=== PATIENT | female | born 1980 | race Caucasian/White ===

== ENCOUNTER 2024-10-25 13:57 | Outpatient (CLI) | payer MEDICAID, SELFPAY ==
[2024-10-25 18:22] LABS: Basophils # 0.1 K/mm3 (0-0.2); Basophils % 0.5 % (0.1-2.0); Eosinophils # 0.2 Kmm3 (0.0-0.4); Hematocrit 43.5 % (37.0-47.0); Hemoglobin 13.5 g/dL (12.2-16.2); Immature Granulocytes # 0.02 10^3uL; Immature Granulocytes % 0.2 %; Lymphocytes % 32.6 % (10-50); Mean Corpuscular Hemoglobin 25.8 pg (27.0-31.2); Mean Platelet Volume 11.3 fl (7.4-10.4); Monocytes # 0.7 K/mm3 (0.1-1.0); Monocytes % 7.6 % (1.7-9.3); Neutrophils # 5.3 K/mm3 (1.8-7.8); Neutrophils % 57.1 % (37.0-80.0); Nucleated Red Blood Cells # 0 10^3/uL; Nucleated Red Blood Cells % 0 %; Platelet Count 286 K/mm3 (142-424); Red Blood Count 5.24 M/mm3 (4.20-5.40); Red Cell Distribution Width 14.6 % (11.5-17.5); Red Cell Distribution Width-SD 43.6 fL; White Blood Count 9.3 K/mm3 (4.8-10.8)
[2024-10-25 19:16] LABS: Alanine Aminotransferase 36 U/L (12-78); Albumin Level 4.4 g/dl (3.5-5.0); Albumin/Globulin Ratio 1.8 (1.1-1.8); Alkaline Phosphatase 74 U/L (38-126); Anion Gap 11.9 mEq/L (5-15); Aspartate Amino Transferase 27 U/L (14-36); Bilirubin,Total 0.9 mg/dl (0.2-1.3); Blood Urea Nitrogen 21 mg/dl (7-17); Calcium 8.9 mg/dl (8.4-10.2); Carbon Dioxide 28 mmol/L (22.0-30.0); Chloride 101 mmol/L (98-107); Chol/HDL Ratio 3.6 (1-3.5); Cholesterol 138 mg/dl (140-200); Estimated Glomerular Filt Rate 68 ml/min (>60); GFR (African American) 82 ML/MIN (>60); Globulin 2.5 g/dL (1.3-3.2); Glucose 101 mg/dl (74-100); HDL Cholesterol 38 mg/dl (40-60); Potassium 3.9 mmoL/L (3.5-5.1); Sodium 137 mmol/L (136-145); Total Protein,Serum 6.9 g/dl (6.3-8.2); Triglycerides 121 mg/dl (30-150); VLDL Cholesterol 24 mg/dL (0-40)
[2024-10-25 19:27] LABS: Direct LDL Cholesterol 81.82 mg/dL (100-129)
[2024-10-25 19:46] LABS: Thyroid Stimulating Hormone 2.61 uIU/mL (0.465-4.68)
[2024-10-25 19:55] LABS: HIV Combo NEGATIVE (Negative)
[2024-10-25 20:01] LABS: Hepatitis C Ab Qual. W/ RFX REACTIVE (Negative)
[2024-10-25 20:12] LABS: Hemoglobin A1C 5.6 % (4.0-6.0)
== END 2024-10-25 23:59 | disposition home or self-care (01) ==
LOC: LAB.DROPOF 10-28 13:58
PROVIDERS: PCP Family Medicine; Visit Provider Family Medicine
DX: Z76.89 Persons encountering health services in other specified circumstances (principal)
CPT/HCPCS: 80053; 80061; 83036; 84443; 85025; 86803; 87389; 87522

== ENCOUNTER 2024-12-18 15:00 | Emergency (ER) | payer MEDICAID, SELFPAY ==
--- OUTSIDE RECORDS SUMMARY | 2024-12-17 10:00 | XMS_ITS | Encounter Summary ---
Author Organization [facility] Address [address] [place] [address] Care Team Providers Care Table Worker Name Role Phone Harlan Fulton MD Primary Care Provider [phone] Reason for Referral * MRI/CAT Scan (Routine) - Closed Specialty Diagnoses / Procedures Referred By Contac t Referred To Contact Orthopedic Surgery Diagnoses Degeneration of intervertebral disc of lumbosacral region with discogenic back pain Lumbar pain Sprain of ligaments of lumbar spine, initial encounter Bulging lumbar disc Spinal stenosis of lumbar region, unspecified whether neurogenic claudication present Sciatica, unspecified laterality Lumbar radiculopathy Lumbar spondylosis Sciatica, left side Degeneration of intervertebral disc of lumbar region with discogenic back pain Procedures MRI LUMBAR SPINE WO CONTRAST Alla Galan PA [address] [address] Phone: tel: fax: [facility] [address] [facility] [address] [place] [address] Phone: tel: fax: Referral ID Status Reason Start Date Expiration Date Visits Re quested Visits Authorized [id number] Closed 12/17/2024 12/17/2025 1 1 Reason for Visit * Reason Comments Follow-up Encounter Details Date Type Department Care Team (Latest Contact Info) Description 12/17/2024 10:00 AM EDT Office Visit [facility] [address] [place], [place] [id number] Alla Galan PA [address] [place] [phone] Degeneration of intervertebral disc of lumbosacral region with discogenic back pain (Primary Dx); Lumbar pain; Sprain of ligaments of lumbar spine, initial encounter; Bulging lumbar disc; Spinal stenosis of lumbar region, unspecified whether neurogenic claudication present; Sciatica, unspecified laterality; Lumbar radiculopathy; Lumbar spondylosis; Sciatica, left side; Degeneration of intervertebral disc of lumbar region with discogenic back pain; Chronic low back pain, unspecified back pain laterality, unspecified whether sciatica present Social History Tobacco Use Types Packs/Day Years Used Date Smoking Tobacco: Every Day Cigarettes 0.3 26.5 Started: 06/29/1998 Smokeless Tobacco: Never Comments:vape and smoke Alcohol Use Standard Drinks/Week Comments Yes 0 (1 standard drink = 0.6 oz pur e alcohol) OCC AUDIT-C Answer Date Recorded Q1: How often do you have a drink containing alc ohol? Never 11/06/2020 Average Number of Drinks Not on file 021 Frequency of Binge Drinking Not on file 10/11 PHQ-2 Answer Date Recorded PHQ-2 Total Score 0 06/14/2024 Sexually Active Control Partners Comments Yes Male Comments No Sex and Gender Information Value Date Recorded Sex Assigned at Not on file Legal Sex Female 2:34 AM EDT Gender Identity Not on file Sexual Orientation Not on file documented as of this encounter Last Filed Vital Signs Vital Sign Reading Time Taken Comments Blood Pressure - - Pulse - - Temperature - - Respiratory Rate - - Oxygen Saturation - - Inhaled Oxygen Concentration - - Weight 88.5 kg (195 lb) 12/17/2024 9:59 AM EDT Height 149.9 cm (4' 11 ) 12/17/2024 9:59 AM EDT Body Mass Index 39.39 12/17/2024 9:59 AM EDT documented in this encounter Functional Status * Is the person deaf or does he/she have serious difficulty hearing? Answer Date of Assessment Author No 11/06/2020 4:01 PM EDT Niharika Lou RMA * Is the person blind or does he/she have serious difficulty seeing even when wearing glasses? Answer Date of Assessment Author No 11/06/2020 4:01 PM EDT Niharika Lou RMA * Does this person have serious difficulty walking or climbing stairs? Answer Date of Assessment Author No 11/06/2020 4:01 PM EDT Niharika Lou RMA * Does this person have difficulty dressing or bathing? Answer Date of Assessment Author No 11/06/2020 4:01 PM EDT Niharika Lou RMA * Because of a physical, mental or emotional condition, does this person have difficulty doing errands alone such as visiting a doctor's office or shopping? Answer Date of Assessment Author No 11/06/2020 4:01 PM EDT Niharika Lou RMA documented as of this encounter Mental Status * Because of a physical, mental or emotional condition, does this person have serious difficulty concentrating, remembering or making decisions? Answer Entry Date Author No 11/06/2020 4:01 PM Niharika June RMA documented in this encounter Progress Notes * Alla Galan PA - 12/17/2024 10:00 AM EDT Images from the original note were not included. 12/17/24 CHIEF COMPLAINT: Chief Complaint Patient presents with Lower Back - Follow-up HISTORY OF PRESENT ILLNESS: 44 y.o. female Low back pain Started after she slipped and fell at [employer] [facility] [employer] November 2023 Cannot sit/stand/walk for prolonged periods of time Left greater than right anterior lateral thigh pain Numbness and tingling Back pain greater than leg pain No bowel or bladder dysfunction No saddle anesthesia Returns for reevaluation Last seen May 2024 Signed up for L2-4 laminectomy Insurance denied due to BMI >40 Has since lost 15 pounds Still with persistent pain Wanting to proceed with surgery Previous Treatment: Physical therapy 01/2024-03/2024 Continues physician directed home exercises 3 x week Diclofenac Oxycodone Tizanidine L4-[address] Ward 04/17/2024. No effect whatsoever Pain management Dr. Ward Past Medical History: Body mass index is 39.39 kg/m??. Diabetic-last A1c 6.4 Past Medical History: Diagnosis Date Anxiety Arthritis In hands and back Calculus of gallbladder without cholecystitis without obstruction 06/26/2020 S/ lap willy on 06/29 COPD (chronic obstructive pulmonary disease) (HCC) Heartburn Hypertension Social History: Non-smoker reports that she has been smoking cigarettes. She started smoking about 26 years ago. She has a 6.6pack-year smoking history. She has never used smokeless tobacco. She reports current alcohol use. She reports that she does not currently use drugs after having used the following drugs: Marijuana and Methamphetamines. PHYSICAL EXAM: LUMBAR/SACRALEXAMINATION: Inspection/Palpation: Points to midline lumbar spine is maximal source of pain today Also points to left greater than right anterior lateral thigh Range of Motion: Full range of motion lumbar spine Motor: 5 out of 5 strength bilateral lower extremities Sensation: Intact throughout Special Tests: Negative straight leg raise bilaterally Reflexes: 1+ patellar reflexes Gait & station: Stable Diagnostic Testing: L spine X rays: Independently reviewed Multilevel degenerative changes No acute bony abnormalities MRI Lumbar Spine: Independently reviewed, 09/14/23 Multilevel degenerative disc disease L2-3 with moderate central stenosis L3-4 with moderate central stenosis and moderate bilateral foraminal stenosis CT abdomen pelvis independently reviewed 05/03/2023: Multilevel degenerative disc disease in lumbar spine Maintained alignment Impression: 1. Degeneration of intervertebral disc of lumbosacral region with discogenic back pain XR LUMBAR SPINE FLEXION AND EXTENSION ONLY MRI LUMBAR SPINE WO CONTRAST CANCELED: MRI LUMBAR SPINE WO CONTRAST 2. Lumbar pain XR LUMBAR SPINE FLEXION AND EXTENSION ONLY MRI LUMBAR SPINE WO CONTRAST CANCELED: MRI LUMBAR SPINE WO CONTRAST 3. Sprain of ligaments of lumbar spine, initial encounter XR LUMBAR SPINE FLEXION AND EXTENSION ONLY MRI LUMBAR SPINE WO CONTRAST CANCELED: MRI LUMBAR SPINE WO CONTRAST 4. Bulging lumbar disc XR LUMBAR SPINE FLEXION AND EXTENSION ONLY MRI LUMBAR SPINE WO CONTRAST CANCELED: MRI LUMBAR SPINE WO CONTRAST 5. Spinal stenosis of lumbar region, unspecified whether neurogenic claudication present XR LUMBAR SPINE FLEXION AND EXTENSION ONLY MRI LUMBAR SPINE WO CONTRAST CANCELED: MRI LUMBAR SPINE WO CONTRAST 6. Sciatica, unspecified laterality XR LUMBAR SPINE FLEXION AND EXTENSION ONLY MRI LUMBAR SPINE WO CONTRAST CANCELED: MRI LUMBAR SPINE WO CONTRAST 7. Lumbar radiculopathy XR LUMBAR SPINE FLEXION AND EXTENSION ONLY MRI LUMBAR SPINE WO CONTRAST CANCELED: MRI LUMBAR SPINE WO CONTRAST 8. Lumbar spondylosis XR LUMBAR SPINE FLEXION AND EXTENSION ONLY MRI LUMBAR SPINE WO CONTRAST CANCELED: MRI LUMBAR SPINE WO CONTRAST 9. Sciatica, left side XR LUMBAR SPINE FLEXION AND EXTENSION ONLY MRI LUMBAR SPINE WO CONTRAST CANCELED: MRI LUMBAR SPINE WO CONTRAST 10. Degeneration of intervertebral disc of lumbar region with discogenic back pain XR LUMBAR SPINE FLEXION AND EXTENSION ONLY MRI LUMBAR SPINE WO CONTRAST CANCELED: MRI LUMBAR SPINE WO CONTRAST 11. Chronic low back pain, unspecified back pain laterality, unspecified whether sciatica present Medical decision Making: Patient presents for reevaluation. Last seen in May [address] Archer. At that time, she was signed up for L2-4 laminectomy. This was denied by insurance due to BMI >40. She has since lost 15 pounds and her BMI is now <40. She has failed extensive conservative treatment including formal physical therapy and physician directed home exercises within the past 6 months and continues tohave pain. I do not think more physical therapy will improve her symptoms. Her last MRI is over a year old. Will order an updated lumbar MRI for surgical planning purposes and have her follow up withDr. Archer to review results. Plan: Lumbar MRI Follow up with Dr. Archer Previous plan L2-3, L3-4 laminectomy Reviewed imaging with patient Activity as tolerated Alla Galan PA-C [facility] [phone] Disclaimer: This note was partially transcribed via voice recognition software. Though all efforts were made to ensure accuracy, it is possible this note may contain telephone station repairer errors. Please bring any inaccuracies discovered to my attention so I may make a corrective addendum in a timely fashion. documented in this encounter Plan of Treatment Upcoming Encounters Date Type Department Care Team (Late st Contact Info) Description 02/26/2025 1:20 PM EDT Office Visit [facility] [address] [place] [phone] Constantin Evans, OD [address] [address] [place] [phone] Scheduled Orders Name Type Priority Associated Diagnoses Orde r Schedule MRI LUMBAR SPINE WO CONTRAST Imaging Routine Degeneration of intervertebral disc of lumbosacral region with discogenic back pain Lumbar pain Sprain of ligaments of lumbar spine, initial encounter Bulging lumbar disc Spinal stenosis of lumbar region, unspecified whether neurogenic claudication present Sciatica, unspecified laterality Lumbar radiculopathy Lumbar spondylosis Sciatica, left side Degeneration of intervertebral disc of lumbar region with discogenic back pain 1 Occurrences starting 12/17/2024 until 12/17/2025 documented as of this encounter Goals Goal Patient Goal Type Associated Problems Recent Progress Patient-Stated? Author Blood Pressure < 140/90 Blood Pressure 130/84(2024 2:26 PM EST) No Naveen Borden MD Maintain a healthy diet, exercise regularly and maintain an ideal body weight General No Annabel Sr RMA BMI (Calculated) < 30 General 39.5(12/18/19 9:59 AM EDT) No Erma Warner MD Stay Tobacco Free Lifestyle No Cory Henriquez MD HEMOGLOBIN A1C < 7.0 Result Component 6.1( 3:21 PM EST) No Erma Warner MD documented as of this encounter Results * XR LUMBAR SPINE FLEXION AND EXTENSION ONLY (12/17/2024 10:18 AM EDT) Narrative Santino Schneider - 12/17/2024 10:18 AM EDT Please see physician's note from office encounter for x-ray imaging result Alla PHILLIPS IMG DIAGNOSTIC IMAGING ORDERABL ES Final Result documented in this encounter Visit Diagnoses Diagnosis Degeneration of intervertebral disc of lumbosacral region with discogenic back pain- Primary Lumbar pain Lumbago Sprain of ligaments of lumbar spine, initial encounter Bulging lumbar disc Displacement of lumbar intervertebral disc without myelopathy Spinal stenosis of lumbar region, unspecified whether neurogenic claudication present Sciatica, unspecified laterality Lumbar radiculopathy Thoracic or lumbosacral neuritis or radiculitis, unspecified Lumbar spondylosis Lumbosacral spondylosis without myelopathy Sciatica, left side Degeneration of intervertebral disc of lumbar region with discogenic back pain Chronic low back pain, unspecified back pain laterality, unspecified whether sciatica present Degeneration of intervertebral disc of lumbosacral region with discogenic back pain Lumbar pain Lumbago Sprain of ligaments of lumbar spine, initial encounter Bulging lumbar disc Displacement of lumbar intervertebral disc without myelopathy Spinal stenosis of lumbar region, unspecified whether neurogenic claudication present Sciatica, unspecified laterality Lumbar radiculopathy Thoracic or lumbosacral neuritis or radiculitis, unspecified Lumbar spondylosis Lumbosacral spondylosis without myelopathy Sciatica, left side Degeneration of intervertebral disc of lumbar region with discogenic back pain documented in this encounter Care Teams Table Worker Relationship Specialty Start Date End Date Harlan Fulton MD [address] [place] [address] PCP - General Family Medicine 12/17/24 documented as of this encounter
--- OUTSIDE RECORDS SUMMARY | 2024-12-17 10:15 | XMS_ITS | Encounter Summary ---
Author Organization [facility] Address [address] [place] [address] Care Team Providers Care Residential Specialist Name Role Phone Harlan Fulton MD Primary Care Provider [phone] Encounter Details Date Type Department Care Team (Latest Contact Info) Description 12/17/2024 10:15 AM EDT Ancillary Procedure [facility] [address] [facility] [address] [place] [address] Alla Galan PA [address] [address] Degeneration of intervertebral disc of lumbosacral region with discogenic back pain; Lumbar pain; Sprain of ligaments of lumbar spine, initial encounter; Bulging lumbar disc; Spinal stenosis of lumbar region, unspecified whether neurogenic claudication present; Sciatica, unspecified laterality; Lumbar radiculopathy; Lumbar spondylosis; Sciatica, left side; Degeneration of intervertebral disc of lumbar region with discogenic back pain Social History Tobacco Use Types Packs/Day Years [...] on file documented as of this encounter Functional Status * Is the [...] Entry Date Author No 11/06/2020 4:01 PM EDT Niharika Lou RMA documented in this encounter Plan of Treatment Upcoming Encounters Date Type Department Care Team (Late st Contact Info) Description 02/26/2025 1:20 PM EDT Office Visit [facility] [address] [phone] Constantin Evans, [address] [place] [address] documented as of this encounter Goals Goal [...] Warner MD documented as of this encounter Procedures Procedure Name Priority Date/Time Associated Diagnosis Comments XR LUMBAR SPINE FLEXION AND EXTENSION ONLY Routine 12/17/2024 10:18 AM EDT Degeneration of intervertebral disc of lumbosacral region with discogenic back pain Lumbar pain Sprain of ligaments of lumbar spine, initial encounter Bulging lumbar disc Spinal stenosis of lumbar region, unspecified whether neurogenic claudication present Sciatica, unspecified laterality Lumbar radiculopathy Lumbar spondylosis Sciatica, left side Degeneration of intervertebral disc of lumbar region with discogenic back pain documented in this encounter Results * XR LUMBAR SPINE FLEXION AND EXTENSION ONLY (12/17/2024 10:18 AM EDT) Narrative GenericuserSantino - 12/17/2024 10:18 AM EDT Please see [...] pain documented in this encounter Care Teams Residential Specialist Relationship Specialty Start Date End Date Harlan Fulton MD [address] [place] [address] PCP - General Family Medicine 12/17/24 documented as of this encounter
[2024-12-18 15:09] VITALS: BP 155/96; PULSE 84; RESP 16; TEMP 36.8; O2SAT 100; BMI 39.2
--- OUTSIDE RECORDS SUMMARY | 2024-12-18 15:11 | XMS_ITS | Encounter Summary ---
Author Organization [facility] Address [address] [place] [address] Care Team Providers Care Animal Trainer Supervisor Name Role Phone Harlan Fulton MD Primary Care Provider [phone] Reason for Visit * Reason Onset Date Comments Medication Refill 12/17/2024 Encounter Details Date Type Department Care Team (Late st Contact Info) Description 12/17/2024 Refill [facility] [address] [facility] [address] [place], [place] [phone] Alex Chase MA Medication Refill Social History Tobacco Use Types Packs/Day Years [...] Niharika June RMA documented in this encounter Ordered Prescriptions Prescription Sig Dispense Quantity Refills Last Filled Start Date End Date diazePAM (VALIUM) 2 mg Oral TabletIndications: Claustrophobia Take one tablet by mouth 30 minutes prior to MRI; take second tablet if needed 2 Tablet 12/17/2024 documented in this encounter Plan of Treatment Upcoming Encounters Date Type Department Care Team (Late st Contact Info) Description 02/26/2025 1:20 PM EDT Office Visit [facility] [address] [address] Constantin Evans, OD [address] [place] [address] documented as of this encounter Goals Goal [...] Warner MD documented as of this encounter Visit Diagnoses Diagnosis Claustrophobia- Primary Other isolated or specific phobias documented in this encounter Care Teams Animal Trainer Supervisor Relationship Specialty Start Date End Date Harlan Fulton MD [address] [place] [address] PCP - General Family Medicine 12/17/24 documented as of this encounter
--- OUTSIDE RECORDS SUMMARY | 2024-12-18 15:11 | XMS_ITS | Encounter Summary ---
Author Organization [facility] Address [address] [place] [address] Care Team Providers Care High Density Finishing Operator Name Role Phone Charlene Rivera APRN Primary Care Provider [phone] Reason for Visit * Reason Onset Date Comments Referral 10/30/2024 Pain Management Encounter Details Date Type Department Care Team (Late st Contact Info) Description 10/30/2024 Telephone [facility] Learning Manager [address] [employer] [place] [phone] Quentin Farley MD [address] [place] [address] Referral (Pain Management) Social History Tobacco Use Types Packs/Day Years [...] Author No 11/06/2020 4:01 PM EDT Niharika Lou, NANETTEA * Is the person blind or does [...] Author No 11/06/2020 4:01 PM EDT Niharika Lou, RMA * Because of a physical, mental [...] Niharika Lou RMA documented in this encounter Miscellaneous Notes * Telephone Encounter - Swati Pierce, [facility] - 10/30/2024 1:39 PM EDT Summary: referral Previously seen Dr. Ward for injections, started the conversation by stating she is not intrested in any injections as they always make her pain worse. She only wants pain medicine Explained to patient that we are also interventional and do injections as well. I gave her numbers to medication management offices in the area [facility] [phone] [address] [facility] [address], [facility] [phone] [address] [facility] [phone] [address] Vas[address] * Telephone Encounter - Rebeca Fernandes NA - 10/30/2024 12:12 PM EDT Received a faxed Pain Management Referral from [facility]. Dr. Harlan Fulton MD ([employer]) documented in this encounter Plan of Treatment Upcoming Encounters Date Type Department Care Team (Late st Contact Info) Description 02/26/2025 1:20 PM EDT Office Visit [facility] [address] [facility] [address] [place] [address] Constantin Evans, OD [address] [facility] [address] [place], [place] [phone] documented as of this encounter Goals Goal [...] documented as of this encounter Visit Diagnoses Not on filedocumented in this encounter Care Teams High Density Finishing Operator Relationship Specialty Start Date End Date Charlene Rivera APRN [address] [place] [address] PCP - General Nurse Practitioner 12/01/23 12/16/24 documented as of this encounter
--- OUTSIDE RECORDS SUMMARY | 2024-12-18 15:11 | XMS_ITS | Encounter Summary ---
Author Organization [facility] Address [address] [place] [address] Care Team Providers Care Filling Machine Set Up Mechanic Name Role Phone Elizabeth Sahu DO Primary Care Provider [phone] Charlene Rivera APRN Primary Care Provider [phone] Harlan Fulton MD Primary Care Provider [phone] Encounter Details Date Type Department Care Team (Late st Contact Info) Description 10/13/2023 Refill [facility] [address] [place] [address] David Archer MD [address] [place] [address] Social History Tobacco Use Types Packs/Day Years Used Date Smoking Tobacco: Former Cigarettes 0.3 26.5 S tarted: 06/29/1998 Smokeless Tobacco: Never Comments:vape and smoke [...] Answer Date Recorded PHQ-2 Total Score 0 11/06/2020 Sexually Active Control Partners Comments Yes Male [...] Author No 11/06/2020 4:01 PM EDT Niharika Luo RMA * Does this person have difficulty [...] Niharika Lou RMA documented in this encounter Ordered Prescriptions Prescription Sig Dispense Quantity Refills Last Filled Start Date End Date gabapentin (NEURONTIN) 300 mg Oral CapsuleIndications :DDD (degenerative disc disease), lumbar,Sprain of ligaments of lumbar spine, initial encounter,Lumbar pain Take 1 Capsule by mouth 2 times daily. 60 Capsule 4 10/15/2023 4 documented in this encounter Miscellaneous Notes * Telephone Encounter - Bing Mahoney MA - 10/13/2023 2:01 PM EDT Called patient and let her know that I will reach out to Dr. Archer to see about getting the prescription signed off on to be sent to pharmacy * Telephone Encounter - Melodie Gomez, Clerical Staff - 10/13/2023 1:49 PM EDT pt called because pharmacy stated the they have 2 different kerwin numbers. needs new rx with correct kerwin number documented in this encounter Plan of Treatment Upcoming Encounters Date Type Department Care Team (Late st Contact Info) Description 02/26/2025 1:20 PM EDT Office Visit [facility] [address] [facility] [address] [place] [address] Constantin Evans, OD [address] [place] [address] documented as of this encounter Goals Goal [...] as of this encounter Visit Diagnoses Diagnosis DDD (degenerative disc disease), lumbar- Primary Degeneration of lumbar or lumbosacral intervertebral disc Sprain of ligaments of lumbar spine, initial encounter Lumbar pain Lumbago documented in this encounter Discontinued Medications Medication Sig Discontinue Reason Start Date End Da te gabapentin (NEURONTIN) 300 mg Oral CapsuleIndications:DDD (degenerative disc disease), lumbar,Sprain of ligaments of lumbar spine, initial encounter Take 1 Capsule by mouth 2 times daily. Cancelled by 10/10/2023 10/15/2023 documented as of this encounter Additional Health Concerns Infection Onset Date Last Indicated Resolved Time R/O COVID-19 06/06/2024 06/06/2024 06/06/2024 6:50 PM EST INFLUENZA 06/06/2024 06/06/2024 06/20/2024 10:1 2 PM EST documented as of this encounter Care Teams Filling Machine Set Up Mechanic Relationship Specialty Start Date End Date Elizabeth Sahu DO [address] [place] [address] PCP - General Family Medicine 09/23/23 11/30/23 Charlene Rivera APRN [address] [place] [address] PCP - General Nurse Practitioner 12/01/23 12/16/24 Harlan Fulton MD [address] [place] [address] PCP - General Family Medicine 12/17/24 documented as of this encounter
--- OUTSIDE RECORDS SUMMARY | 2024-12-18 15:12 | XMS_ITS | Continuity of Care Document ---
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 06/28/2021 Refill [place] [address] [place] [address] Erma Warner MD Medication Refill 06/25/2021 Refill [place] [address] [place] [address] Darryl Carter MD Medication Refill 05/28/2021 Refill [place] [address] [place] [address] Erma Warner MD Medication Refill 05/27/2021 Refill [place] [address] [place] [address] Erma Warner MD Medication Refill 05/03/2021 Telephone [facility][1] [address] [place] [address] [address] [place] [address] Radha Armenta, ATC Note 04/27/2021 Telephone [place] [address] [place] [address] Erma Warner MD Prior Authorization (HYDROcodone-acetamin ophen (NORCO) 7.5-325 mg Oral [id number]/16/2021) 04/27/[address] [address] Radha Armenta, ATC Note 04/27/2021 11:10 AM EST Telemedicine [address] [place] [address] Erma Warner MD Yeast infection (Primary Dx); Elevated glucose; Hyperuricemia; Glucose intolerance; Iron deficiency anemia due to chronic blood loss; Screening for thyroid disorder; Vitamin D deficiency; Screening for cholesterol level 04/26/[address] [place] [address] Darryl Carter MD Medication Refill 04/14/2021 Travel 04/14/2021 10:20 AM EDT Telemedicine [address] [place] [address] Erma Warner MD Flea bite of multiple sites (Primary Dx); Finger pain, right; DDD (degenerative disc disease), lumbar; Facet arthritis of lumbar region; Arthropathy of spinal facet joint concurrent with and due to effusion; Constipation, unspecified constipation type 04/06/2021 Travel 04/06/2021 7:47 AM EDT - 04/06/2021 11:59 PM EDT Hospital Encounter [facility] [address] [place] [address] Amanda Joseph, OTR/L CHT Discharge Disposition: Home or Self Care 04/05/2021 1:15 PM EDT Office Visit [address] [address] Ramone De La Rosa MD Left hand pain (Primary Dx); Mallet deformity of left middle finger 03/30/[address] [place] [address] Erma Warner MD Medication Management 03/30/[address] [place] [address] Erma Warner MD Medication Refill 03/29/2021 Orders Only [address] [place] [address] Niharika Nieto RMA High risk medications (not anticoagulants) long-term use (Primary Dx) 03/29/2021 3:19 PM EDT - 03/29/2021 4:52 PM EDT Emergency [facility] [place] [address] Alla Gonzalez MD Finger pain, left (Primary Dx) Discharge Disposition: Home or Self Care 03/29/2021 Travel 03/29/2021 12:55 PM EDT - 03/29/2021 3:18 PM EDT Hospital En[facility] [address] [facility] [place] [address] High risk medications (not anticoagulants) long-term use Discharge Disposition: Home or Self Care 03/24/2021 Refill [place] [address] [place] [address] Erma Warner MD Medication Refill 03/08/2021 Refill [place] [address] [place] [address] Erma Warner MD Medication Refill 02/25/2021 Refill [place] [address] [place] [address] Erma Warner MD Medication Refill 02/24/2021 Refill [place] [address] [place] [address] Erma Warner MD Medication Refill 01/26/2021 Refill [place] [address] [place] [address] Erma Warner MD Medication Refill 01/15/2021 Telephone [place] [address] [place] [address] Erma Warner MD Appointment Needed (pt has a bruise on the back her left knee, it hurts and pops when she walks, x1 day,) 01/05/2021 Travel 01/05/2021 10:40 AM EDT Telemedicine [place] [place] [address] [place] [address] Erma Warner MD Menstrual bleeding problem (Primary Dx); Numbness and tingling in left hand 12/30/[address] [place] [address] Erma Warner MD Medication Refill 12/30/[address] [place] [address] Erma Warner MD Results ( Lab- wants to discuss lab results and medication .) 12/27/2020 1:24 PM EDT - 12/27/2020 11:59 PM EDT Hospital Encounter [facility] [address] [place] [address] DDD (degenerative disc disease), lumbar; Facet arthritis of lumbar region; Arthropathy of spinal facet joint concurrent with and due to effusion Discharge Disposition: Home or Self Care 12/23/2020 Travel 12/23/2020 10:20 AM EDT Telemedicine [address] [place] [address] Erma Warner MD Excessive vaginal bleeding (Primary Dx); DDD (degenerative disc disease), lumbar; Facet arthritis of lumbar region; Arthropathy of spinal facet joint concurrent with and due to effusion 12/22/[address] [place] [address] Erma Warner MD Medication Refill 12/21/2020 Refill SEP [address] [place] [address] Erma Warner MD Medication Refill (Gabapentin and [place]) 12/19/2020 Refill SEP [address] [place] [address] Erma Warner MD Medication Refill 12/18/2020 Refill [place] [address] [place] [address] Erma Warner MD Medication Refill 12/18/2020 Refill [place] [address] [place] [address] Erma Warner MD Medication Refill; Medication Refill 12/18/2020 Refill [place] [address] [place] [address] Erma Warner MD Medication Refill 11/19/[address] [place] [address] Erma Warner MD Results 11/19/2020 Refill SEP [address] [place] [address] Erma Warner MD Medication Refill 11/19/2020 8:30 AM EDT - 11/19/2020 11:59 PM EDT Hospital Encounter [facility] [address] [facility] [place] [address] High risk medications (not anticoagulants) long-term use Discharge Disposition: Home or Self Care 11/19/2020 Travel 11/17/[address] [place] [address] Erma Warner MD Schedule Appointment (pt needs a med check appt ov jarad/ tram sung) 11/17/2020 Travel 11/17/2020 Refill SEP [address] [place] [address] Erma Warner MD Medication Refill 11/17/2020 Refill [place] [address] [place] [address] Erma Warner MD Medication Refill 11/17/2020 Refill [place] [address] [place] [address] Erma Warner MD Medication Refill 11/17/[address] [place] [address] Erma Warner MD Medication Refill 11/16/2020 Orders Only [address] [place] [address] Emilia Niharika Perkins, [facility] 11/06/2020 2:05 PM EDT - 11/06/2020 11:59 PM EDT Hospital Encounter [facility] [address] [facility]. [place] [address] Iron deficiency anemia due to chronic blood loss; Hyperuricemia; Vitamin D deficiency; Hypercalcemia; Easy bruising; Cigarette nicotine dependence without complication; Glucose intolerance; Hypercalcemia; Abnormal TSH Discharge Disposition: Home or Self Care 11/06/2020 Travel 11/06/2020 4:00 PM EDT Office Visit [address] [place] [address] Erma Warner MD Pap smear for cervical cancer screening (Primary Dx); Menstrual bleeding problem 10/23/2020 Travel 10/19/2020 Travel 10/19/2020 9:00 AM EDT Telemedicine [address] [place] [address] Erma Warner MD DDD (degenerative disc disease), lumbar (Primary Dx); Depression with anxiety; Vitamin D deficiency; Facet arthritis of lumbar region; Arthropathy of spinal facet joint concurrent with and due to effusion; Constipation, unspecified constipation type 09/28/2020 Travel 09/21/2020 Travel 09/21/2020 10:40 AM EDT Telemedicine [address] [place] [address] Erma Warner MD Easy bruising (Primary Dx); Cigarette nicotine dependence without complication; Glucose intolerance; Hypercalcemia; Hyperuricemia; Iron deficiency anemia due to chronic blood loss; Vitamin D deficiency; Abnormal TSH; Depression with anxiety; S/P laparoscopic cholecystectomy; DDD (degenerative disc disease), lumbar; Facet arthritis of lumbar region; Arthropathy of spinal facet joint concurrent with and due to effusion; Essential hypertension; Gastroesophageal reflux disease, unspecified whether esophagitis present 08/31/2020 Travel 08/31/2020 9:40 AM EDT Telemedicine [address] [place] [address] Erma Warner MD Depression with anxiety (Primary Dx); Breast pain in female; Opioid use 08/24/[address] [place] [address] Erma Warner MD Medication Refill (hydrocodone and gabapentin) 08/24/2020 Travel 08/24/2020 Refill SEP [address] [place] [address] Erma Warner MD Medication Refill 08/24/2020 Refill [place] [address] [place] [address] Erma Warner MD Medication Refill 08/24/2020 Refill [place] [place] [address] [place] [address] Erma Warner MD Medication Refill 08/22/2020 Refill [place] [address] [place] [address] Erma Warner MD Medication Refill 08/22/2020 Refill [place] [address] [place] [address] Erma Warner MD Medication Refill 08/22/2020 Refill [place] [address] [place] [address] Erma Warner MD Medication Refill 08/22/2020 Refill [place] [address] [place] [address] Erma Warner MD Medication Refill 08/08/2020 Travel 08/08/2020 3:41 PM EST - 08/08/2020 4:25 PM EST Emergency [facility] [address] [place] [address] Sixto Bradford MD Breast pain, left (Primary Dx); Opiate overdose, accidental or unintentional, initial encounter ([facility]) Discharge Disposition: Prison 08/07/2020 Telephone SEP [address] [place] [address] Erma Warner MD Non-scheduled Referral 07/27/2020 Travel 07/27/2020 9:00 AM EST Telemedicine [place] [address] [place] [address] Erma Warner MD Sore throat (Primary Dx); DDD (degenerative disc disease), lumbar; Facet arthritis of lumbar region; Arthropathy of spinal facet joint concurrent with and due to effusion; Snoring; Vaping nicotine dependence, tobacco product 07/10/2020 Refill [place] [address] [place] [address] Erma Warner MD Medication Refill 07/10/2020 Refill [place] [address] [place] [address] Erma Warner MD Medication Refill 07/07/2020 Travel 07/07/2020 11:00 AM EST Telemedicine [place] [address] [place] [address] Erma Warner MD Constipation due to opioid therapy (Primary Dx); S/P laparoscopic cholecystectomy 07/07/2020 10:00 AM EST Telemedicine [facility] [address] [place] [address] Kb Ward MD Lumbar degenerative disc disease (Primary Dx); Lumbosacral spondylosis without myelopathy; Chronic pain syndrome 07/01/2020 Travel 07/01/2020 9:40 AM EST Telemedicine [place] [address] [place] [phone] Erma Warner MD S/P laparoscopic cholecystectomy (Primary Dx); Pain associated with surgical procedure; Calculus of gallbladder without cholecystitis without obstruction 06/30/2020 Travel 06/29/2020 12:15 PM EST - 06/30/2020 1:18 PM EST Hospital Encounter [facility] [address] [place], [place] [id number] Benny Frances MD Preop testing (Primary Dx); Calculus of gallbladder without cholecystitis without obstruction; Essential hypertension; Calculus of gallbladder without cholecystitis without obstruction Discharge Disposition: Home or Self Care 06/29/2020 Travel 06/29/2020 2:00 PM EST - 06/29/2020 3:15 PM EST Surgery [facility] [address] [place] [address] Benny Frances MD LAPAROSCOPIC CHOLECYSTECTOMY POSSIBLE OPEN 06/29/2020 1:50 PM EST Anesthesia Event [facility] [address] [place] [address] Génesis Perdue MD Spray, Elizabeth A, SIPHONER 06/26/2020 12:57 PM EST - 06/26/2020 11:59 PM EST Hospital Encounter [facility] [address] [place] [address] Covid19, [facility] Pre-op testing; Encounter for laboratory testing for COVID-19 virus Discharge Disposition: Home or Self Care 06/26/2020 Travel 06/26/2020 Orders Only [facility] [address] [place] [address] Benny Frances MD Calculus of gallbladder without cholecystitis without obstruction (Primary Dx) 06/26/2020 Telephone [facility] [address] [place] [address] Galina Jim[facility]nez [facility] Prior Authorization 06/26/2020 10:50 AM EST Telemedicine [facility] [address] [place] [address] Benny Frnaces MD Biliary colic (Primary Dx) 06/24/2020 Travel 06/22/2020 Travel 06/22/2020 10:00 AM EST Telemedicine [place] [place] [address] [place] [address] Erma Warner MD Calculus of gallbladder without cholecystitis without obstruction (Primary Dx); DDD (degenerative disc disease), lumbar; Facet arthritis of lumbar region; Arthropathy of spinal facet joint concurrent with and due to effusion 06/20/2020 10:28 AM EST - 06/20/2020 11:59 PM EST Hospital Encounter [facility] [place] [address] Erma Warner MD Abdominal pain, RUQ (right upper quadrant) Discharge Disposition: Home or Self Care 06/19/2020 Travel 06/06/2020 Refill [place] [address] [place] [address] Erma Warner MD Medication Refill 06/02/2020 Travel 06/02/2020 10:40 AM EST Telemedicine [place] [place] [address] [place] [address] Erma Warner MD Contusion of left thumb without damage to nail, initial encounter (Primary Dx) 05/28/2020 Patient Outreach [place] [address] [place] [address] Aidan Patrick LPN ED Follow-Up Call 05/27/2020 Travel 05/27/2020 12:58 PM EST - 05/27/2020 2:49 PM EST Emergency [facility] [address] [place] [id number] Emeka Rain MD Contusion of left thumb without damage to nail, initial encounter (Primary Dx) Discharge Disposition: Home or Self Care 05/16/2020 Travel 05/12/2020 Telephone [place] [address] [place] [address] Erma Warner MD Medication Management 05/12/2020 Travel 05/12/2020 11:00 AM EST Telemedicine [place] [address] [place] [address] Erma Warner MD DDD (degenerative disc disease), lumbar (Primary Dx); Facet arthritis of lumbar region; Arthropathy of spinal facet joint concurrent with and due to effusion 05/09/2020 Travel 05/09/2020 10:03 AM EST - 05/09/2020 11:59 PM EST Hospital Encounter [facility] [place] [address] Erma Warner MD Chronic left-sided low back pain with left-sided sciatica; DDD (degenerative disc disease), lumbar Discharge Disposition: Home or Self Care 04/24/2020 Travel 04/24/2020 2:00 PM EST Telemedicine [facility] [address] [place] [address] Erma Warner MD Chronic left-sided low back pain with left-sided sciatica (Primary Dx) 04/20/2020 Travel 04/15/2020 Travel 04/15/2020 10:00 AM EST Telemedicine [facility]P [facility] [place] [address] Erma Warner MD Chronic left-sided low back pain with left-sided sciatica (Primary Dx); Iron deficiency anemia due to chronic blood loss; Hyperuricemia; Vitamin D deficiency; Abdominal pain, RUQ (right upper quadrant); Abnormal TSH; Hypercalcemia 04/14/2020 Travel 04/13/2020 Orders Only [facility] [place] [address] Erma Warner MD Chronic left-sided low back pain with left-sided sciatica (Primary Dx); DDD (degenerative disc disease), lumbar 04/13/2020 Telephone [facility] [place] [address] Erma Warner MD Results (labs and imaging) 03/31/2020 3:14 PM EDT - 03/31/2020 11:59 PM EDT Hospital Encounter [facility] D[facility]WING X[facility] [place] [address] Chronic left-sided low back pain with left-sided sciatica; Well adult exam; Chronic pain of both hips; Cigarette nicotine dependence without complication; COPD, mild (HCC) Discharge Disposition: Home or Self Care 03/31/2020 Travel 03/30/2020 Travel 03/30/2020 8:20 AM EDT Office Visit [facility] [address] [place] [address] Erma Warner MD Well adult exam (Primary Dx); Establishing care with new doctor, encounter for; Chronic left-sided low back pain with left-sided sciatica; Chronic pain of both hips; Rectal bleeding; Generalized anxiety disorder; Depression with anxiety; Essential hypertension; Cigarette nicotine dependence without complication; Glucose intolerance; Gastroesophageal reflux disease, unspecified whether esophagitis present; COPD, mild (HCC); Screening for hyperlipidemia; Hypercalcemia; Vitamin D deficiency; Screening for deficiency anemia; Screening for thyroid disorder; Need for hepatitis C screening test; Breast mass in female; Elevated glucose 03/26/2020 Travel 10/10/2019 Travel 10/10/2019 9:00 AM EDT Telemedicine [facility] [address] [place] [phone] Naveen Borden MD DDD (degenerative disc disease), lumbar (Primary Dx) 10/09/2019 Telephone [facility] [place] [address] [place] [address] Naveen Borden MD Symptom Call 08/29/2019 Travel 08/28/2019 Travel 08/03/2019 Travel 08/03/2019 9:10 AM EST Office Visit [facility] [place] [address] [place] [address] Naveen Borden MD Essential hypertension (Primary Dx); Depression with anxiety; Epigastric abdominal pain; Rectal bleed; Gastroesophageal reflux disease with esophagitis 04/17/2019 1:00 PM EST Office Visit [facility] [place] [address] [place] [address] Naveen Borden MD Right leg numbness (Primary Dx); Essential hypertension; Depression with anxiety; Chronic left-sided low back pain with left-sided sciatica 03/29/2019 10:56 AM EDT - 03/29/2019 1:05 PM EDT Emergency [facility] [address] [place] [address] Galina Yuen DO Anxiety (Primary Dx); Contusion of left lower extremity, initial encounter Discharge Disposition: Home or Self Care 03/12/2019 Travel 03/12/2019 1:32 PM EDT - 03/12/2019 2:24 PM EDT Emergency [facility] [place] [address] Bryce Simms MD Odontalgia (Primary Dx) Discharge Disposition: Home or Self Care 10/25/2018 4:00 PM EDT Office Visit [facility] [address] [place] [address] Cory Henriquez MD Annual physical exam (Primary Dx); DDD (degenerative disc disease), lumbar; Acute bronchitis, unspecified organism 01/07/2015 Telephone [facility] [address] [place] [address] Sixto Byrne MD Other 12/29/2014 7:36 PM EDT - 12/29/2014 11:59 PM EDT Hospital Encounter [facility] [place] [address] Routine general medical examination at a health care facility; Weight gain; Vitamin D deficiency Discharge Disposition: Home or Self Care 12/29/2014 Telephone [facility] [address] [place] [address] Sixto Byrne MD Medication Management 12/29/2014 11:30 AM EDT Office Visit [facility] [address] [place] [address] Sixto Byrne MD Establishing care with new doctor, encounter for (Primary Dx); Thoracic back pain, unspecified back pain laterality; Bilateral hand numbness; Cervical pain; Low back pain, unspecified back pain laterality, with sciatica presence unspecified; Routine general medical examination at a health care facility; Weight gain; Vitamin D deficiency 07/07/1998 4:19 AM EST - 07/09/1998 1:18 PM EST Hospital Encounter [facility] Ramone Burch MD Heeb, Christopher A, MD 07/07/1998 1:29 AM EST - 07/07/1998 3:35 AM EST Emergency [facility] EPIC CON UNK [facility] Edward Russo MD 06/10/1998 2:41 PM EST - 06/10/1998 11:59 PM EST Hospital Encounter [facility] RADIOLOGY GRT Jorje Bills MD 06/09/1998 3:27 PM EST - 06/09/1998 4:30 PM EST Emergency [facility] EPIC CON UNK Alexandr Gutierrez MD 11/10/1995 7:03 PM EDT - 11/10/1995 11:59 PM EDT Hospital Encounter [facility] Allergies Active Allergy Reactions Criticality Noted Date Comments Penicillins Hives Low 12/29/2014 Meperidine Hives,Other (See Comments) Low 12/29/2014 Pt. Reports that it Warped her Phenergan Dm Rash Low 12/29/2014 Latex Rash Low 08/22/2022 Medications PROAIR HFA 90 mcg/actuation Inhl HFA Aerosol Inhaler Inhale 2 Puffs into the lungs 3 times daily. 8.5 Each 2 10/25/19 23 Active gabapentin (NEURONTIN) 400 mg Oral Capsule Take 400 mg by mouth 3 times daily. Active diclofenac (VOLTAREN) 75 mg Oral Tablet, Delayed Release (E.C.)Indication s:Lumbar pain,Sprain of ligaments of lumbar spine, initial encounter,Sprain of ligaments of thoracic spine, initial encounter,Bulgin g lumbar disc Take 1 Tablet by mouth 2 times daily. 30 Tablet 07/18/19 25 Active tiZANidine (ZANAFLEX) 4 mg Oral TabletIndication s:Lumbar pain,Sprain of ligaments of lumbar spine, initial encounter,Sprain of ligaments of thoracic spine, initial encounter,Bulgin g lumbar disc Take 1 Tablet by mouth nightly. 30 Tablet 07/18/19 25 Active empagliflozin (JARDIANCE) 10 mg Oral TabletIndication s:Type 2 diabetes mellitus with hyperglycemia, without long-term current use of insulin (HCC) Take 1 Tablet by mouth daily. 90 Tablet 3 08/27/19 25 Active lisinopriL (PRINIVIL;ZESTRI L) 20 mg Oral Tablet tabletIndication s:Essential hypertension Take 1 Tablet by mouth daily. 90 Tablet 1 08/27/19 25 Active diazePAM (VALIUM) 2 mg Oral TabletIndication s:Claustrophobia Take one tablet by mouth 30 minutes prior to MRI; take second tablet if needed 2 Tablet 12/18/19 25 Active semaglutide 0.25 mg or 0.5 mg (2 mg/3 mL) SubQ Pen InjectorIndicati ons:Type 2 diabetes mellitus without complication, unspecified whether usp insulin use (HCC) Subcutaneous (Inject under the skin) 0.25 mg once a week for 28 days, THEN 0.5 mg once a week for 14 days. 3 mL 10/11/19 25 025 Active Problems Patient Care Coordination No te Formatting of this note migh t be different from the original. [facility] - Kb Ward MD Controlled Substance Protocol Completed: A. Informed Consent Statement signed (Yearly) ( 03/04/2024 ) B. Controlled Substance Agreement signed (Yearly) ( 03/04/2024 ) C. Comprehensive Urine Drug Screen was performed (Minimum YEARLY ) ( 01/08/2024 ) D. Niraj report completed (EVERY 3 MONTHS) ( 04/29/2024 ) E. Screening tool for addiction (SOAPP) completed (YEARLY) ( 03/04/2024 ) F. Need for controlled substance is documented (EVERY VISIT) G. Pain Scale and or Functional capacity documented (EVERY VISIT) Pharmacy: [facility] [address] [place] [id number] [address] [facility] [phone] Spine Center additional info (Transportation, WC, Compound, No Show, PPW) Problem Noted Date Diagnosed Date Obesity, Class III, BMI 40-49.9 (morbid obesity) 06/19/2024 Assessment & Plan (06/19/2024 10:36 PM EST): Goals: - lose 10 pounds in 3 months (4 pounds the first month and 3 pounds the next two months) Advice: - exercise 30 minutes daily - reduce calories to 1200 calories daily - low carb diet Age-related nuclear cataract of both eyes 2023 Assessment & Plan (02/21/2024 2:25 PM EDT): I explained to the patient that they have visually insignificant cataracts in both the right and left eyes. These cataracts are not currently affecting their vision to a significant degree. We will continue to monitor the cataracts annually. I advised the patient to contact our office if they experience any of the following symptoms: Decreased vision Increased glare Halos around lights Difficulty seeing street signs while driving These symptoms could indicate that the cataracts are progressing and may require further evaluation or treatment. Diabetes mellitus type 2 without retinopathy 04/2024 Assessment & Plan (02/21/2024 2:25 PM EDT): The patient is a Type II diabetic with no signs of retinopathy today. We discussed the importance of maintaining good glucose control and emphasized the need for regular blood sugar/A1c management and annual eye exams. The patient was educated on diabetic eye disease and the necessity of yearly eye examinations. We also reviewed the importance of continuous blood sugar and blood pressure control. I stressed the need to adhere to the guidance provided by the patient s primary care physician and other healthcare providers involved in their care. The patient was instructed to contact our office immediately if they experience any changes in vision. Proper control of blood sugar and blood pressure is crucial to reducing the risk of vision loss. OCT of macula was Normal OD/OS. No signs of Diabetic macular edema OD/OS [id number] DDD 08/21/2023 Overview (06/19/2024): Surgery consult Almas Galan MD [facility] [place] Assessment & Plan (06/19/2024 10:28 PM EST): continue care with Spine [facility] Inter[facility] Sprain of ligaments of lumbar spine 08/21/2023 Sciatica, left side 08/21/2023 Type 2 diabetes mellitus wit h hyperglycemia, without long-term current use of insulin 03/06/2023 Gastroesophageal reflux disease with esophagitis 08/30/2021 Iron deficiency anemia due to chronic blood loss 04/15/2020 Hyperuricemia 04/15/2020 Assessment & Plan (04/15/2020 12:13 PM EST): Will start allopurinol. Counseled on diet changes. Repeat uric acid, bmp in 4 weeks. Vitamin D deficiency 03/30/2020 Assessment & Plan (04/15/2020 12:14 PM EST): Start weekly vit d. Repeat bmp in 4 weeks. If calcium is back down will try to add calcium with vit d 600mg/400 iu bid . Hypercalcemia 03/30/2020 Glucose intolerance 03/30/2020 Cigarette nicotine dependence without complicati on 03/30/2020 Lumbar pain 03/30/2020 Assessment & Plan (04/26/2020 11:11 PM EST): CSC not completed today but will need to be if gabapentin is continued [employer]. Awaiting MRI. Xray showed degenerative changes and grade 1 anterolisthesis of L2-L3 measuring 2mm. Denies saddle anesthesia, fevers, bowel or urinary incontinence. Assessment & Plan (04/15/2020 12:15 PM EST): Will do trial of oral steroid taper to see if improves pain given recent leg weakness while awaiting mri. May need to restart gabapentin. Essential hypertension 03/30/2020 Depression with anxiety 03/30/2020 Generalized anxiety disorder 03/30/2020 Resolved Problems Problem Noted Date Diagnosed Date Resolved Date Calculus of gallbladder with out cholecystitis without obstruction 06/26/2020 07/01/2020 Overview (07/01/2020): S/ lap willy on 06/29 Immunizations Immunization Administration Dates Next Due Influenza Vaccine Quadrivalent PF 06/30/2020 Family History Medical History Relation Name Comments Cataracts Father Heart Attack Father before age 50; had total of 7 High Blood Pressure Father High Cholesterol Father Diabetes Maternal Aunt Uterine Cancer Maternal Aunt Diabetes Maternal Grandfather Diabetes Maternal Grandmother Back Problems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 [facility] Barbiturates Absent Cutoff 200 ng/mL 01/10/2024 2:30 PM EDT [facility] THC <10 Cutoff 10 ng/mL ng/mL 01/10/2024 2:30 PM EDT [employer] [employer] Comment:3-vedmalk-fsscdkuvri cannabinol; does not distinguish between prescribed and illicit forms THC Glucuronide <10 Cutoff 10 ng/mL ng/mL 01/10/2024 2:30 PM EDT [employer] Comment:Metabolite of THC Amphetamine <50 Cutoff 50 ng/mL ng/mL 01/10/2024 2:30 PM EDT [facility] Comment:e.g., Adderall, Vyva nse, Dexedrine, Obetrol MDA <50 Cutoff 50 ng/mL ng/mL 01/10/2024 2:30 PM EDT [facility] Comment:Metabolite of MDMA, and MDEA MDEA <50 Cutoff 50 ng/mL ng/mL 01/10/2024 2:30 PM EDT [facility] Comment:e.g., Bernie MDMA <50 Cutoff 50 ng/mL ng/mL 01/10/2024 2:30 PM EDT [facility] Comment:e.g., Ecstasy, Regina Methamphetamine <50 Cutoff 50 ng/mL ng/mL 01/10/2024 2:30 PM EDT [facility] Comment:d- and l- isomers ar e not distinguished by this test; may reflect Star's inhaler, Desoxyn, Selegiline, or illicit source Phentermine <50 Cutoff 50 ng/mL ng/mL 01/10/2024 2:30 PM EDT [facility] Comment:e.g., Adipex, Lomair a, Ionamin,Fastin,Zantryl Gabapentin <50 Cutoff 50 ng/mL ng/mL 01/10/2024 2:30 PM EDT [facility] Comment:e.g, Neurontin Pregabalin <50 Cutoff 50 ng/mL ng/mL 01/10/2024 2:30 PM EDT [facility] Comment:Lyrica Alprazolam <8 Cutoff 8 ng/mL ng/mL 01/10/2024 2:30 PM EDT [facility] Comment:e.g, Xanax, Niravam alpha-Hydroxyalprazolam <25 Cutoff 25 ng/mL ng/mL 01/10/2024 2:30 PM EDT [facility] Comment:Metabolite of Alpraz olam Clonazepam <10 Cutoff 10 ng/mL ng/mL 01/10/2024 2:30 PM EDT [facility] Comment:e.g., Klonopin, Clon opin 7-Aminoclonazepam <25 Cutoff 25 ng/mL ng/mL 01/10/2024 2:30 PM EDT [facility] Comment:Metabolite of Clonaz epam Diazepam <10 Cutoff 10 ng/mL ng/mL 01/10/2024 2:30 PM EDT [facility] Comment:e.g, Valium, Diastat Nordiazepam <25 Cutoff 25 ng/mL ng/mL 01/10/2024 2:30 PM EDT [facility] Comment:Metabolite of Chlord iazepoxide(Librium), Clorazepate(Tranxene), Diazepam, Halazepam, (Alapryl), Prazepam(Centrax) Flunitrazepam <50 Cutoff 50 ng/mL ng/mL 01/10/2024 2:30 PM EDT [facility] Comment:e.g.,Rohypnol, Narco zep 7-Aminoflunitrazepam <50 Cutoff 50 ng/mL ng/mL 01/10/2024 2:30 PM EDT [facility] Comment:Metabolite of Flunit razepam Flurazepam <50 Cutoff 50 ng/mL ng/mL 01/10/2024 2:30 PM EDT [facility] Comment:e.g., Dalmane Hydroxyethylflurazepam <50 Cutoff 50 ng/mL ng/mL 01/10/2024 2:30 PM EDT [facility] Comment:Metabolite of Fluraz epam Lorazepam <50 Cutoff 50 ng/mL ng/mL 01/10/2024 2:30 PM EDT [facility] Comment:e.g., Ativan Lorazepam Glucuronide <50 Cutoff 50 ng/mL ng/mL 01/10/2024 2:30 PM EDT [facility] Comment:Metabolite of Loraze hugh Midazolam <50 Cutoff 50 ng/mL ng/mL 01/10/2024 2:30 PM EDT [facility] Comment:e.g., Versed alpha-hydroxymidazolam <50 Cutoff 50 ng/mL ng/mL 01/10/2024 2:30 PM EDT [facility] Comment:Metabolite of Versed Oxazepam <50 Cutoff 50 ng/mL ng/mL 01/10/2024 2:30 PM EDT [facility] Comment:e.g., Serax; also Me tabolite of Temazepam, and Nordiazepam Oxazepam Glucuronide <50 Cutoff 50 ng/mL ng/mL 01/10/2024 2:30 PM EDT [facility] Comment:Metabolite of Oxazep am Temazepam <50 Cutoff 50 ng/mL ng/mL 01/10/2024 2:30 PM EDT [facility] Comment:e.g., Restoril; also Metabolite of Diazepam Temazepam Glucuronide <50 Cutoff 50 ng/mL ng/mL 01/10/2024 2:30 PM EDT [facility] Comment:Metabolite of Temaze hugh and Diazepam Triazolam <50 Cutoff 50 ng/mL ng/mL 01/10/2024 2:30 PM EDT [facility] Comment:e.g., Halcion alpha-hydroxytriazolam <50 Cutoff 50 ng/mL ng/mL 01/10/2024 2:30 PM EDT [facility] Comment:Metabolite of Triazo ravi Buprenorphine <5 Cutoff 5 ng/mL ng/mL 01/10/2024 2:30 PM EDT [facility] Comment:e.g., Suboxone, Subu gerardo,Sublocade, Buprenex Buprenorphine Glucuronide <10 Cutoff 10 ng/mL ng/mL 01/10/2024 2:30 PM EDT [facility] Comment:Buprenorphine Metabo lite Norbuprenorphine <5 Cutoff 5 ng/mL ng/mL 01/10/2024 2:30 PM EDT [facility] Comment:Buprenorphine Metabo lite Norbuprenorphine Glucuronide <10 Cutoff 10 ng/mL ng/mL 01/10/2024 2:30 PM EDT [facility] Comment:Buprenorphine Metabo lite Benzoylecgonine <50 Cutoff 50 ng/mL ng/mL 01/10/2024 2:30 PM EDT [facility] Comment:Cocaine Metabolite Fentanyl <1 Cutoff 1 ng/mL ng/mL 01/10/2024 2:30 PM EDT [facility] Comment:e.g.,Duragesic, Oral et, Actiq, Sublimaze, Innovar, Lazanda Norfentanyl <1 Cutoff 1 ng/mL ng/mL 01/10/2024 2:30 PM EDT [facility] Comment:Metabolite of Fentan yl 6-Monoacetylmorphine (6MAM) <10 Cutoff 10 ng/mL ng/mL 01/10/2024 2:30 PM EDT [facility] Comment:Metabolite of Heroin ; Morphine is expected Methadone <50 Cutoff 50 ng/mL ng/mL 01/10/2024 2:30 PM EDT [facility] Comment:e.g., Dolophine, Met hadose, Amidone EDDP <50 Cutoff 50 ng/mL ng/mL 01/10/2024 2:30 PM EDT [facility] Comment:Methadone Metabolite Carisoprodol <100 Cutoff 100 ng/mL ng/mL 01/10/2024 2:30 PM EDT [facility] Comment:e.g., Soma Meprobamate <100 Cutoff 100 ng/mL ng/mL 01/10/2024 2:30 PM EDT [facility] Comment:e.g., [place], Equa nil, Micrainin, Equagesic; Metabolite of Carisoprodol Codeine <50 Cutoff 50 ng/mL ng/mL 01/10/2024 2:30 PM EDT [facility] Comment:e.g., Acetaminophen w/Codeine, Tylenol3 w/ Codeine Codeine Glucuronide <50 Cutoff 50 ng/mL ng/mL 01/10/2024 2:30 PM EDT [facility] Comment:Metabolite of Codein e Meperidine <50 Cutoff 50 ng/mL ng/mL 01/10/2024 2:30 PM EDT [facility] Comment:e.g., Demerol, Pethi dine Normeperidine <50 Cutoff 50 ng/mL ng/mL 01/10/2024 2:30 PM EDT [facility] Comment:Metabolite of Meperi dine Morphine <50 Cutoff 50 ng/mL ng/mL 01/10/2024 2:30 PM EDT [facility] Comment:e.g., MS Contin, Venita anol; Metabolite of Codeine and Heroin; may reflect poppy seed ingestion Izzfwxvk-2-Tyjcqiwuvlg <25 Cutoff 25 ng/mL ng/mL 01/10/2024 2:30 PM EDT [facility] Comment:Metabolite of Morphi ne. Cnzbzxlq-8-Hlpjmmopifk <25 Cutoff 25 ng/mL ng/mL 01/10/2024 2:30 PM EDT [facility] Comment:Metabolite of Morphi ne. Naloxone <25 Cutoff 25 ng/mL ng/mL 01/10/2024 2:30 PM EDT [facility] Comment:e.g., Narcan, Evzio Hydrocodone <50 Cutoff 50 ng/mL ng/mL 01/10/2024 2:30 PM EDT [facility] Comment:e.g., Lorcet, Lortab , Vicodin, [place]; Minor Metabolite of Codeine Dihydrocodeine <50 Cutoff 50 ng/mL ng/mL 01/10/2024 2:30 PM EDT [facility] Comment:e.g., Didrate, Parzo ne, Parlor, Synalgos; Metabolite of Hydrocodone Norhydrocodone <50 Cutoff 50 ng/mL ng/mL 01/10/2024 2:30 PM EDT [facility] Comment:Metabolite of Hydroc odone Hydromorphone <50 Cutoff 50 ng/mL ng/mL 01/10/2024 2:30 PM EDT [facility] Comment:e.g., Dilaudid; also Metabolite of Hydrocodone and Minor Metabolite of Morphine Hydromorphone Glucuronide <50 Cutoff 50 ng/mL ng/mL 01/10/2024 2:30 PM EDT [facility] Comment:Metabolite of Hydrom orphone Oxycodone <50 Cutoff 50 ng/mL ng/mL 01/10/2024 2:30 PM EDT [facility] Comment:e.g., Oxycontin, Per cocet, Endocet, Percodan, Roxicet Noroxycodone <50 Cutoff 50 ng/mL ng/mL 01/10/2024 2:30 PM EDT [facility] Comment:Metabolite of Oxycod one Oxymorphone <50 Cutoff 50 ng/mL ng/mL 01/10/2024 2:30 PM EDT [facility] Comment:e.g., Opana; Metabol ite of Oxycodone Oxymorphone Glucuronide <50 Cutoff 50 ng/mL ng/mL 01/10/2024 2:30 PM EDT [facility] Comment:Metabolite of Oxycod one Noroxymorphone <50 Cutoff 50 ng/mL ng/mL 01/10/2024 2:30 PM EDT [facility] Comment:Metabolite of Oxycod one, and Oxymorphone, Noroxycodone Metabolite Tramadol <50 Cutoff 50 ng/mL ng/mL 01/10/2024 2:30 PM EDT [facility] Comment:e.g., Ultram, ConZip U-Gduwzxtln-lyf-Tramadol <50 Cutoff 50 ng/mL ng/mL 01/10/2024 2:30 PM EDT [facility] Comment:Metabolite of Tramad ol Tapentadol <50 Cutoff 50 ng/mL ng/mL 01/10/2024 2:30 PM EDT [facility] Comment:Nucynta Tapentadol-Glucuronide <50 Cutoff 50 ng/mL ng/mL 01/10/2024 2:30 PM EDT [facility] Comment:Metabolite of Tapent adol Urine Creatinine 55.3 mg/dL 01/10/20 2:30 PM EDT [facility] Comment: Greater than 20: Consistent with valid sample Greater than 2 but less than 20: Possible dilution Less than 2: Questionable valid sample Urine URINE SPECIMEN COLLECTION / Unknown 01/08/2024 11:38 AM EDT 01/08/2024 11:38 AM EDT Narrative [facility] - 01/10/2024 2:30 PM EDT The absence of expected drug(s), and/or drug metabolite(s), may indicate non-compliance, diluted or adulterated urine, poor drug absorption, concentration of drug below the cut-off, timing of specimen collection relative to administration of drug, or limitations of testing. Specimens are held for 7 days. This test was developed, and its performance characteristics determined by [facility] ([facility] It has not been cleared or approved by the FDA. This test is used for clinical purposes. It should not be regarded as investigational or for research. [facility] is certified under the Clinical Laboratory Improvement Amendments (CLIA) as qualified to perform high complexity clinical laboratory testing. Kb Ward MD URINE ORDERABLES Final Result [facility] [address] [facility], [place] [address] [facility] [address] [place] [address] * (ABNORMAL) CBC WITH DIFF (10/17/2023 11:41 AM EDT) Only the most recent of8 resultswithin the time period is included. WBC 17.8(H) 3.7 - 10.3 x10(3)/mcL 10/17/2023 5:32 PM EDT [facility] RBC 5.37(H) 3.90 - 5.20 x10(6)/mcL 10/17/2023 5:32 PM EDT [facility] Hgb 13.4 11.2 - 15.7 g/dL 10/17/2023 5:32 PM EDT [facility] Hct 43.0 34.0 - 45.0 % 10/17/2023 5:32 PM EDT [facility] MCV 80.1 80.0 - 100.0 fL 10/17/2023 5:32 PM EDT [facility] MCH 25.0(L) 26.0 - 34.0 pg 10/17/2023 5:32 PM EDT [facility] MCHC 31.2 30.7 - 35.5 g/dL 10/17/2023 5:32 PM EDT [facility] RDW 16.2(H) <=14.9 % 10/17/2023 5:32 PM EDT [facility] Platelet 413(H) 155 - 369 x10(3)/mcL 10/17/2023 5:32 PM EDT [facility] MPV 10.7 8.8 - 12.5 fL 10/17/2023 5:32 PM EDT [facility] Neut Percent 70.6 % 10/17/2023 5:32 PM EDT [facility] Comment:Neutrophils equals s egs plus bands Imm Gran% 0.6 % 10/17/2023 5:32 PM EDT [facility] Comment:Automated count of m etamyelocytes, myelocytes and promyelocytes. Lymph Percent 21.7 % 10/17/2023 5:32 PM EDT [facility] [place] Percent 5.3 % 10/17/2023 5:32 PM EDT [facility] Eos Percent 1.5 % 10/17/2023 5:32 PM EDT [facility] Baso Percent 0.3 % 10/17/2023 5:32 PM EDT [facility] Neut # 12.6(H) 1.6 - 6.1 x10(3)/[facility] 10/17/2023 5:32 PM EDT [facility], [facility] Comment:Neutrophils equals s egs plus bands IMMGRAN# 0.1 0.0 - 0.1 x10(3)/[facility] 10/17/2023 5:32 PM EDT [facility], [facility] Comment:Automated count of m etamyelocytes, myelocytes and promyelocytes. An absolute IG <0.1 is reported as 0.0. Lymph # 3.9 1.2 - 3.9 x10(3)/[facility] 10/17/2023 5:32 PM EDT [facility] [place] # 0.9 0.3 - 0.9 x10(3)/mcL 10/17/2023 5:32 PM EDT [facility] Eos# 0.3 0.0 - 0.5 x10(3)/mcL 10/17/2023 5:32 PM EDT [facility], [facility] Baso # 0.1 0.0 - 0.1 x10(3)/[facility] 10/17/2023 5:32 PM EDT [facility], [facility] Blood VENOUS BLOOD / Unknown Venipuncture / Unknown 10/17/2023 11:41 AM EDT 10/17/2023 11:41 AM EDT us Darryl Carter MD HEMATOLOGY ORDERABLES Final Re sult [facility] [address] [facility] , [place] [address] * (ABNORMAL) HEMOGLOBIN A1C (10/17/2023 11:41 AM EDT) Only the most recent of7 resultswithin the time period is included. Hgb A1C 6.2(H) 4.2 - 5.6 % 10/17/2023 6:04 PM EDT [facility] [employer], [facility] Est. Avg Glucose 131 mg/dL 10/17/2023 6:04 PM EDT [facility] [employer] Blood VENOUS BLOOD / Unknown Venipuncture / Unknown 10/17/2023 11:41 AM EDT 10/17/2023 11:41 AM EDT Narrative [facility] [employer] - 10/17/2023 6:04 PM EDT REFERENCE RANGE: Normal: 4.0-5.6% Pre-diabetes: 5.7-6.4% Provisional diagnosis of diabetes: >6.4% Hgb F>10% and anything which shortens red cell survival, such as hemolytic anemia, or unstable hemoglobin variants such as HbSS, HbSC, or HbCC, will lower the HbA1c value associated with a given level of glycemic control. us Darryl Carter MD CHEMISTRY ORDERABLES Final Res ult [facility] [employer] [address] [facility] , [place] [address] * (ABNORMAL) BASIC METABOLIC PANEL (10/17/2023 11:41 AM EDT) Only the most recent of4 resultswithin the time period is included. Sodium 141 136 - 145 mmol/L 10/17/2023 6:24 PM EDT [facility] [employer] Potassium 3.7 3.5 - 5.0 mmol/L 10/17/2023 6:24 PM EDT [facility] [employer], [facility] Chloride 103 98 - 107 mmol/L 10/17/2023 6:24 PM EDT [facility] [employer] Total CO2 25 22 - 29 mmol/L 10/17/2023 6:24 PM EDT [facility] [employer] Anion Gap 13 7 - 16 mmol/L 10/17/2023 6:24 PM EDT [facility] [employer] Calcium 9.2 8.6 - 10.4 mg/dL 10/17/2023 6:24 PM EDT [facility] Glucose Lvl 128(H) 70 - 99 mg/dL 10/17/2023 6:24 PM EDT [facility] BUN 15 6 - 20 mg/dL 10/17/2023 6:24 PM EDT [facility] Creatinine 1.08 0.51 - 1.30 mg/dL 10/17/2023 6:24 PM EDT [facility] eGFR (CKD-EPIcr 2020) 65 >=60 mL/min/1.7 3 m2 10/17/2023 6:24 PM EDT [facility] Comment:Estimated GFR was ca lculated using the CKD-EPIcr (2020) equation refit without race. The equation is recommended by the [employer] - [place] [employer] Task Force. Blood VENOUS BLOOD / Unknown Venipuncture / Unknown 10/17/2023 11:41 AM EDT 10/17/2023 11:41 AM EDT us Darryl Carter MD CHEMISTRY ORDERABLES Final Res ult [address], [place] [address] [facility] [address] [place] [address] * (ABNORMAL) URINALYSIS REFLEX (10/09/2023 4:25 PM EDT) UA Color Yellow 10/09/2023 4:37 PM EDT [facility] UA Appear Clear Clear 10/09/2023 4:37 PM EDT [facility] UA Glucose Negative Negative mg/dL 10/09/2023 4:37 PM EDT [facility] UA Ketones 1+ (15 mg/dL)(A) Negative mg/dL 10/09/2023 4:37 PM EDT [facility] UA Blood Negative Negative 10/09/2023 4:37 PM EDT [facility] UA pH 5.5 5.0 - 8.0 pH 10/09/2023 4:37 PM EDT [facility] UA Protein Trace(A) Negative mg/dL 10/09/2023 4:37 PM EDT [facility] UA Urobilinogen 0.2 <=1 mg/dL 4:37 PM EDT [facility] UA Bili Negative Negative 10/09/2023 4:37 PM EDT [facility] UA Nitrite Negative Negative 10/09/2023 4:37 PM EDT [facility] UA Leuk Est Negative Negative 10/09/2023 4:37 PM EDT [facility] UA Spec Grav >=1.030 1.001 - 1.035 no units 10/09/2023 4:37 PM EDT [facility] Comment:Reference range rk d for random specimens only. UA WBC 2 0 - 4 /HPF 10/09/2023 4:37 PM EDT [facility] UA Squam Epi 2+ /LPF 10/09/2023 4:37 PM EDT [facility] UA Bacteria Trace(A) Negative /HPF 10/09/2023 4:37 PM EDT [facility] Urine URINE SPECIMEN COLLECTION, CLEAN CATCH / Unknown 10/09/2023 4:25 PM EDT 10/09/2023 4:27 PM EDT us Georgie Pritchard APRN URINE ORDERABLES Final Res ult Performing Organization Address [facility] Co de Phone Number [facility] [address] [place] [address] * EXTRA CANO URINE CX (10/09/2023 4:25 PM EDT) Urine URINE SPECIMEN COLLECTION, CLEAN CATCH / Unknown 10/09/2023 4:25 PM EDT 10/09/2023 4:27 PM EDT us Georgie Pritchard APRN MICROBIOLOGY - GENERAL ORD ERABLES Final Result Performing Organization Address [facility] Co de Phone Number [facility] [address] [place] [address] * HUMAN CHORIONIC GONADOTROPIN QUANTITATIVE (10/09/2023 3:03 PM EDT) Hcg Quant <1 <5 mIU/mL 10/09/2023 3:29 PM EDT [facility] Blood VENOUS BLOOD / Unknown Venipuncture / Unknown 10/09/2023 3:03 PM EDT 10/09/2023 3:05 PM EDT Narrative [facility] - 10/09/2023 3:29 PM EDT Ingestion of sabrina doses of biotin (>5 mg/day) taken within 8 hours of drawing blood sample can interfere with this immunoassay test. Female (non-): 0-4.9 mIU/mL Female (postmenopausal): 0-8.1 mIU/mL Indeterminate values for (e.g., 5-25 mIU/mL) may be confirmed with a repeat test in 48-72 hours. Values in should double every 2-3 days for the first six weeks. Georgie Pritchard APRN CHEMISTRY ORDERABLES Final Result Performing Organization Address City/[facility]/ZIP Co de Phone Number [facility] [address] [place] [address] * MAGNESIUM LEVEL (10/09/2023 3:03 PM EDT) Only the most recent of2 resultswithin the time period is included. Magnesium 1.8 1.6 - 2.4 mg/dL 10/09/2023 3:29 PM EDT [facility] Blood VENOUS BLOOD / Unknown Venipuncture / Unknown 10/09/2023 3:03 PM EDT 10/09/2023 3:05 PM EDT Georgie Pritchard APRN CHEMISTRY ORDERABLES Final Result Performing Organization Address [facility] Co de Phone Number [facility] [address] [place] [address] * LIPASE LEVEL (10/09/2023 3:03 PM EDT) Lipase Lvl 29 13 - 60 U/L 10/09/2023 3:24 PM EDT [facility] Blood VENOUS BLOOD / Unknown Venipuncture / Unknown 10/09/2023 3:03 PM EDT 10/09/2023 3:05 PM EDT us Georgie Naeem Macho SIPHONER CHEMISTRY ORDERABLES Final Result [facility] [address] [place] [address] * (ABNORMAL) COMPREHENSIVE METABOLIC PANEL (10/09/2023 3:03 PM EDT) Only the most recent of7 resultswithin the time period is included. Sodium 139 136 - 145 mmol/L 10/09/2023 3:29 PM EDT [facility] Potassium 4.1 3.5 - 5.0 mmol/L 10/09/2023 3:29 PM EDT [facility] Chloride 99 98 - 107 mmol/L 10/09/2023 3:29 PM EDT [facility] Total CO2 23 22 - 29 mmol/L 10/09/2023 3:29 PM EDT [facility] Anion Gap 17(H) 7 - 16 mmol/L 10/09/2023 3:29 PM EDT [facility] Calcium 10.1 8.6 - 10.4 mg/dL 10/09/2023 3:29 PM EDT [facility] Glucose Lvl 144(H) 70 - 99 mg/dL 10/09/2023 3:29 PM EDT [facility] BUN 20 6 - 20 mg/dL 10/09/2023 3:29 PM EDT [facility] Creatinine 0.90 0.51 - 1.30 mg/dL 10/09/2023 3:29 PM EDT [facility] Albumin 4.7 3.5 - 5.2 gm/dL 10/09/2023 3:29 PM EDT [facility] Total Protein 8.0 6.4 - 8.3 gm/dL 10/09/2023 3:29 PM EDT [facility] Bili Total 1.3 0.2 - 1.3 mg/dL 10/09/2023 3:29 PM EDT [facility] ALT 26 <=41 U/L 10/09/2023 3:29 PM EDT [facility] AST 18 <=40 U/L 10/09/2023 3:29 PM EDT [facility] Alk Phos 94 36 - 123 U/L 10/09/2023 3:29 PM EDT [facility] eGFR (CKD-EPIcr 2020) 80 >=60 mL/min/1.7 3 m2 10/09/2023 3:29 PM EDT [facility] Comment:Estimated GFR was ca lculated using the CKD-EPIcr (2020) equation refit without race. The equation is recommended by the National Kid[employer] - [place] [employer] of Nephrology Task Force. Blood VENOUS BLOOD / Unknown Venipuncture / Unknown 10/09/2023 3:03 PM EDT 10/09/2023 3:05 PM EDT Georgie Pritchard APRN CHEMISTRY ORDERABLES Final Result Performing Organization Address City/[facility]/ZIP Co de Phone Number [facility] [address] [place] [address] * MICROALBUMIN/CREATININE RATIO URINE (05/15/2023 4:44 PM EST) Urine Microalb 42.9 mg/L 05/15/2023 9:09 PM EST [facility] Urine Creatinine 221.4 mg/dL 05/15/2023 9:09 PM EST [facility] Ur Microalb/Creat 19 0 - 30 mg/g 05/15/2023 9:09 PM EST [facility] Urine URINE SPECIMEN COLLECTION / Unknown 05/15/2023 4:44 PM EST 05/15/2023 4:44 PM EST Darryl Carter MD URINE ORDERABLES Final Result Performing Organization Address City/[facility]/ZIP Co de Phone Number [employer] [address] [place] [address] , [place] [address] * (ABNORMAL) IRON+TIBC (12/05/2022 11:36 AM EDT) Only the most recent of3 resultswithin the time period is included. Iron 71 30 - 160 mcg/dL 12/05/2022 6:49 PM EDT [facility], [facility] Transferrin 363(H) 200 - 360 mg/dL 12/05/2022 6:49 PM EDT [facility], [facility] Transferrin Saturation 14(L) 20 - 50 % 12/05/2022 6:49 PM EDT [facility] TIBC 508(H) 250 - 400 mcg/dL 12/05/2022 6:49 PM EDT [facility] Blood VENOUS BLOOD / Unknown Venipuncture / Unknown 12/05/2022 11:36 AM EDT 12/05/2022 11:36 AM EDT Erma Sung MD CHEMISTRY ORDERABLE S Final Result Performing Organization Address [facility] Phone Number [address] , [place] [address] * VITAMIN B12/ FOLIC ACID (12/05/2022 11:36 AM EDT) Only the most recent of7 resultswithin the time period is included. [facility] Vitamin B12 592 232 - 1,245 pg/mL 12/05/2022 4:54 PM EDT [facility] Folate >16.00 >=4.80 ng/mL 12/05/2022 4:54 PM EDT [facility] Blood VENOUS BLOOD / Unknown Venipuncture / Unknown 12/05/2022 11:36 AM EDT 12/05/2022 11:36 AM EDT Narrative [facility] - 12/05/2022 4:54 PM EDT Ingestion of sabrina doses of biotin (>5 mg/day) taken within 8 hours of drawing blood sample can interfere with this immunoassay test. Erma Sung MD CHEMISTRY ORDERABLE S Final Result Performing Organization Address [facility] de Phone Number [address] , [place] [address] * TSH REFLEX (12/05/2022 11:36 AM EDT) Only the most recent of2 resultswithin the time period is included. TSH Reflex 1.820 0.270 - 4.200 mcIU/mL 12/05/2022 6:06 PM EDT [facility] Blood VENOUS BLOOD / Unknown Venipuncture / Unknown 12/05/2022 11:36 AM EDT 12/05/2022 11:36 AM EDT Narrative [facility] - 12/05/2022 6:06 PM EDT Ingestion of sabrina doses of biotin (>5 mg/day) taken within 8 hours of drawing blood sample can interfere with this immunoassay test. Erma Sung MD CHEMISTRY ORDERABLE S Final Result Performing Organization Address [facility] de Phone Number [facility] [address] , [place] [phone] * (ABNORMAL) VITAMIN D 25 HYDROXY (12/05/2022 11:36 AM EDT) Only the most recent of7 resultswithin the time period is included. Vit D 25 OH 14.5(L) 30.0 - 150.0 ng/mL 12/05/2022 4:54 PM EDT [facility] [address] [facility] Comment: Preferred: >= 30 ng/mL Insufficient: 21-29 ng/mL Deficient <= 20 ng/mL Possible Toxicity: >150 ng/mL Samples should not be taken from patients receiving therapy with high biotin doses (i.e. > 5 mg/day) until at least 8 hours following the last biotin administration. Blood VENOUS BLOOD / Unknown Venipuncture / Unknown 12/05/2022 11:36 AM EDT 12/05/2022 11:36 AM EDT Erma Sung MD CHEMISTRY ORDERABLE S Final Result Performing Organization Address [facility] Phone Number [facility] [address] , [place] [address] * (ABNORMAL) URIC ACID (12/05/2022 11:36 AM EDT) Only the most recent of6 resultswithin the time period is included. Uric Acid 5.9(H) 2.4 - 5.7 mg/dL 12/05/2022 6:49 PM EDT [employer] Blood VENOUS BLOOD / Unknown Venipuncture / Unknown 12/05/2022 11:36 AM EDT 12/05/2022 11:36 AM EDT us Erma Sung MD CHEMISTRY ORDERABLE S Final Result [facility] [employer] [address] [facility] , [place] [address] * (ABNORMAL) LIPID SCREEN (12/05/2022 11:36 AM EDT) Only the most recent of5 resultswithin the time period is included. Cholesterol 175 <200 mg/dL 12/05/2022 6:49 PM EDT [employer] Comment: < 200 Desirable 200 - 239 Borderline High >= 240 High Triglyceride 92 <150 mg/dL 12/05/2022 6:49 PM EDT [employer] Comment: < 150 Normal 150 - 199 Borderline High 200 - 499 High >= 500 Very High HDL 50 >=40 mg/dL 12/05/2022 6:49 PM EDT [employer] Comment: > 60 Optimal 40 - 60 Acceptable < 40 Low LDL Calculated 108(H) <100 mg/dL 12/05/2022 6:49 PM EDT [employer] Comment: < 100 Optimal 100 - 129 Near or above optimal 130 - 159 Borderline High 160 - 189 High >= 190 Very High Non-HDL-C Calculated 125 <=129 mg/dL 12/05/2022 6:49 PM EDT [employer] Comment: <130 Desirable 130-159 Above Desirable 160-189 Borderline High 190-219 High >= 220 Very High Fasting Specimen? Yes None 023 6:49 PM EDT [facility] Blood VENOUS BLOOD / Unknown Venipuncture / Unknown 12/05/2022 11:36 AM EDT 12/05/2022 11:36 AM EDT us Erma Sung MD CHEMISTRY ORDERABLE S Final Result [facility] [employer] [address] [facility] [place] [address] [facility] [address] [place] [address] * TSG PATHOLOGY ORDER (08/22/2022 12:22 PM EDT) Tissue GASTRIC / Unknown 08/22/2022 12:22 PM EDT Tissue specimen (specimen) ESOPHAGEAL STRUCTURE / Unknown 08/22/2022 12:22 PM EDT Impressions [facility] - 08/22/2022 7:00 PM EDT A. Stomach, gastric: Biopsy CHRONIC ACTIVE GASTRITIS POSITIVE FOR H PYLORI TYPE MICROORGANISMS NEGATIVE FOR DYSPLASIA OR MALIGNANCY Sections show chronic active gastritis. The findings are characterized by chronic active inflammation throughout the biopsy fragments. H pylori is not seen on H&E, but is confirmed with a special stain. There is no evidence of intestinal metaplasia, dysplasia, or malignancy. B. Esophagus, Select: Biopsy BENIGN ESOPHAGEAL MUCOSA NEGATIVE FOR INTESTINAL METAPLASIA, DYSPLASIA, OR MALIGNANCY NO SIGNIFICANT ABNORMALITY SEEN Sections show benign esophageal mucosa. There is no evidence of intestinal metaplasia, dysplasia, or malignancy. No significant abnormality is seen. No intraepithelial eosinophils are observed. Narrative [facility] - 08/22/2022 7:00 PM EDT Pathologist: Sajan Montez MD us Lane Bosch MD [employer] - ORDERABLES Final Result Performing Organization Address City/[facility]/ZIP Co de Phone Number [facility] [address] * GMED EGD (08/22/2022 12:00 PM EDT) 08/22/2022 12:0 0 PM EDT Impressions [facility] - 08/22/2022 12:25 PM EDT Normal duodenum. Normal mucosa in the whole esophagus. (Biopsy, Dilation). Erythema and granularity in the antrum and pre-pyloric region compatible with non-erosive gastritis. (Biopsy). Plan: If you do not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 out COVID-19 and cannot be used as sole basis for treatment or patient management decisions. If COVID-19 is still suspected following a 'Not Detected' result, re-testing should be considered. Swab BOTH ANTERIOR NARES / Unknown 06/26/2020 12:57 PM EST 06/26/2020 12:57 PM EST Narrative [facility] - 06/26/2020 9:55 PM EST This test is a nucleic acid amplification test intended for the qualitative detection of nucleic acid from the SARS-CoV-2 in upper respiratory samples collected from individuals suspected of COVID-19. Test is performed on the [employer] platform under the FDA's Emergency Use Authorization (EUA). [employer] Provider Fact Sheet: https://www.fda.gov/media/728067/download [employer] Patient Fact Sheet: https://www.fda.gov/media/502240/download us Erma Sung MD MICROBIOLOGY - GENE [facility] ORDERABLES Final Result [facility] [address] [facility] , [place] [address] * US RIGHT UPPER QUADRANT (06/20/2020 11:34 AM EST) Anatomical Region Laterality Modality Abdomen Ultrasound 06/20/2020 11:3 4 AM EST Impressions 06/20/2020 11:56 AM EST There is cholelithiasis. Otherwise, unremarkable right upper quadrant ultrasound. - - Narrative 06/20/2020 11:56 AM EST US RIGHT UPPER QUADRANT, 06/20/2020 11:34 AM CLINICAL HISTORY: R10.11-Right upper quadrant [id number]-[id number]-CM. COMPARISON: None. PROCEDURE COMMENTS: Ultrasound examination of the right upper quadrant performed by the technologist. Sent to PACS along with tech notes for radiologist review. FINDINGS: The liver parenchyma is normal in contour and echogenicity. There is no focal hepatic lesion. There is no intrahepatic or extrahepatic delivery ductal dilation. The common bile duct measures 5 mm. The gallbladder is nondistended. There are layering gallstones. There is a normal gallbladder wall thickness. The sonographic Montero's sign is negative. The visualized portions of the right kidney and pancreas are normal. Procedure Note Laquita Swanson MD - 06/20/2020 US RIGHT UPPER QUADRANT, 06/20/2020 11:34 AM CLINICAL HISTORY: R10.11-Right upper quadrant [id number]-FST-30-CM. COMPARISON: None. PROCEDURE COMMENTS: Ultrasound examination of the right upper quadrantperformed by the technologist. Sent to PACS along with tech notes for radiologistreview. FINDINGS: The liver parenchyma is normal in contour and echogenicity. There is nofocal hepatic lesion. There is no intrahepatic or extrahepatic delivery ductal dilation. The common bile duct measures 5 mm. The gallbladder is nondistended. There are layering gallstones. There bg normal gallbladder wall thickness. The sonographic Montero's sign isnegative. The visualized portions of the right kidney and pancreas are normal. IMPRESSION: There is cholelithiasis. Otherwise, unremarkable right upper quadrant ultrasound. - - us Erma Sung MD IMG US ORDERABLES F inal Result * XR FINGER LEFT MINIMUM 2 VW (05/27/2020 1:27 PM EST) Anatomical Region Laterality Modality Hand Radiographic Aidee ging 05/27/2020 1:27 PM EST Impressions 05/27/2020 1:36 PM EST No acute bony abnormality. - Narrative 05/27/2020 1:36 PM EST XR FINGER LEFT MINIMUM 2 VW, 05/27/2020 1:27 PM CLINICAL HISTORY: -THUMB INJURY COMPARISON: None. PROCEDURE COMMENTS: Routine views per the ordered protocol. FINDINGS: No acute fracture, dislocation, embedded foreign body, or significant soft tissue abnormality. Procedure Note Gloria Garg MD - 05/27/2020 XR FINGER LEFT MINIMUM 2 VW, 05/27/2020 1:27 PM CLINICAL HISTORY: -THUMB INJURY COMPARISON: None. PROCEDURE COMMENTS: Routine views per the ordered protocol. FINDINGS: No acute fracture, dislocation, embedded foreign body, or significantsoft tissue abnormality. IMPRESSION: No acute bony abnormality. - Emeka Rain MD IMG DIAGNOSTIC IMAGING ORDER ABBE Final Result * MRI LUMBAR SPINE WO CONTRAST (05/09/2020 11:03 AM EST) Anatomical Region Laterality Modality Spine, L-spine Magnetic Resonan ce 05/09/2020 11:0 3 AM EST Impressions 05/09/2020 11:35 AM EST 1. Transitional anatomy as above. 2. Broad-based disc bulge at L4-L5 resulting in mild canal narrowing as well as mild bilateral foraminal narrowing, left greater than right. 3. Additional noncompressive multilevel degenerative changes as above. - Narrative 05/09/2020 11:35 AM EST MRI LUMBAR SPINE WITHOUT CONTRAST, 05/09/2020 11:03 AM CLINICAL HISTORY: M54.42-Lumbago with sciatica, left rubl-JAL-26-CM G89.29-Other chronic fqqi-RWC-35-CM M51.36-Other intervertebral disc degeneration, lumbar gkabxd-UGQ-42-CM COMPARISON: Radiographs 03/31/2020 PROCEDURE COMMENTS: Multiplanar multiecho MR imaging of the lumbar spine without contrast. FINDINGS: Transitional anatomy is present with a partially lumbarized S1. The L5-S1 level is located on axial image #12. There is a rudimentary disc at the S1-S2 level (image #18). Vertebral body height and alignment are maintained. No fracture or worrisome marrow signal abnormality. Mild intervertebral disc space narrowing and partial disc desiccation at L3-L4 and L4-L5. Level by level analysis: L1-L2: Unremarkable. L2-L3: Shallow broad-based disc bulge without canal or foraminal narrowing. L3-L4: Shallow broad-based disc bulge and mild bilateral facet arthropathy with small bilateral facet joint effusions. There is mild thecal sac compression. Mild noncompressive inferior right foraminal narrowing. L4-L5: Broad-based disc bulge and bilateral facet arthropathy, asymmetric to the right with a right facet joint effusion. This results in mild thecal sac compression without canal narrowing. Mild inferior foraminal narrowing bilaterally, left greater than right. L5-S1: Unremarkable. Procedure Note Gloria Garg MD - 05/09/2020 MRI LUMBAR SPINE WITHOUT CONTRAST, 05/09/2020 11:03 AM CLINICAL HISTORY: M54.42-Lumbago with sciatica, left wgcm-JMA-35-CM G89.29-Other chronic gohp-XDM-70-CM M51.36-Other intervertebral disc degeneration, lumbar ojpoxj-QMP-67-CM COMPARISON: Radiographs 03/31/2020 PROCEDURE COMMENTS: Multiplanar multiecho MR imaging of the lumbar spinewithout contrast. FINDINGS: Transitional anatomy is present with a partially lumbarized S1. The L5-G7uxofg is located on axial image #12. There is a rudimentary disc at the S1-C0covue (image #18). Vertebral body height and alignment are maintained. Nofracture or worrisome marrow signal abnormality. Mild intervertebral disc spacenarrowing and partial disc desiccation at L3-L4 and L4-L5. Level by level analysis: L1-L2: Unremarkable. L2-L3: Shallow broad-based disc bulge without canal or foraminalnarrowing. L3-L4: Shallow broad-based disc bulge and mild bilateral facet arthropathywith small bilateral facet joint effusions. There is mild thecal saccompression. Mild noncompressive inferior right foraminal narrowing. L4-L5: Broad-based disc bulge and bilateral facet arthropathy, asymmetricto the right with a right facet joint effusion. This results in mild thecal sac compression without canal narrowing. Mild inferior foraminal narrowing bilaterally, left greater than right. L5-S1: Unremarkable. IMPRESSION: 1. Transitional anatomy as above. 2. Broad-based disc bulge at L4-L5 resulting in mild canal narrowing aswell as mild bilateral foraminal narrowing, left greater than right. 3. Additional noncompressive multilevel degenerative changes as above. - us Erma Sung MD IMG MRI ORDERABLES Final Result * XR HIPS BILATERAL AP LATERAL W AP PELVIS (03/31/2020 3:47 PM EDT) Anatomical Region Laterality Modality Hip Radiographic Aidee ging 03/31/2020 3:47 PM EDT Impressions 03/31/2020 5:06 PM EDT 1. No acute bony abnormality of the pelvis or hips. 2. Mild osteophyte formation with otherwise preserved joint space is indicative of early primary osteoarthritis. - Narrative 03/31/2020 5:06 PM EDT AP PELVIS WITH TWO VIEWS EACH HIP, 03/31/2020 3:47 PM CLINICAL HISTORY: M25.551-Pain in right dmq-MNU-16-CM M25.552-Pain in left wku-ZKI-34-CM G89.29-Other chronic vdaa-KZB-31-CM COMPARISON: None. PROCEDURE COMMENTS: AP pelvis with AP and frogleg views of each hip. FINDINGS: Bony structure of the pelvis and hips intact. Mild osteophyte formation with otherwise preserved joint spaces. No osseous erosions or periostitis. Procedure Note Gloria Garg MD - 03/31/2020 AP PELVIS WITH TWO VIEWS EACH HIP, 03/31/2020 3:47 PM CLINICAL HISTORY: M25.551-Pain in right for-NVE-83-CM M25.552-Pain in left zff-YMD-57-CM G89.29-Other chronic etfb-MUS-78-CM COMPARISON: None. PROCEDURE COMMENTS: AP pelvis with AP and frogleg views of each hip. FINDINGS: Bony structure of the pelvis and hips intact. Mild osteophyte formation with otherwise preserved joint spaces. No osseous erosions or periostitis. IMPRESSION: 1. No acute bony abnormality of the pelvis or hips. 2. Mild osteophyte formation with otherwise preserved joint space isindicative of early primary osteoarthritis. - Erma Sung MD IMG DIAGNOSTIC IMAG ING ORDERABLES Final Result * XR LUMBAR SPINE AP LATERAL AND OBLIQUES (03/31/2020 3:47 PM EDT) Anatomical Region Laterality Modality L-spine Radiographic Aidee ging 03/31/2020 3:47 PM EDT Impressions 03/31/2020 5:08 PM EDT Mild multilevel degenerative changes with grade 1 degenerative spondylolisthesis at L2-L3. - Narrative 03/31/2020 5:08 PM EDT LUMBAR SPINE AP, LATERAL, AND BILATERAL OBLIQUES, 03/31/2020 3:47 PM CLINICAL HISTORY: M54.42-Lumbago with sciatica, left pcjv-MNO-93-CM G89.29-Other chronic vivd-TUT-08-CM Z00.00-Encounter for general adult medical examination without abnormal vbxdeviv-KCS-22-CM COMPARISON: None. PROCEDURE COMMENTS: AP, lateral, coned down lateral, and bilateral oblique views of the lumbar spine. FINDINGS: Transitional anatomy is present. There are hypoplastic ribs at the lowest thoracic vertebrae labeled as T12. There is a partially sacralized L5 segment. The lowest fully formed disc space labeled as L5-S1. Mild intervertebral disc space narrowing and endplate spurring. Grade 1 degenerative anterolisthesis of L2-L3 measuring 2 mm. No spondylolysis. Mild multilevel facet arthropathy. Procedure Note Gloria Garg MD - 03/31/2020 LUMBAR SPINE AP, LATERAL, AND BILATERAL OBLIQUES, 03/31/2020 3:47 PM CLINICAL HISTORY: M54.42-Lumbago with sciatica, left zodn-TQN-15-CM G89.29-Other chronic ould-TSS-96-CM Z00.00-Encounter for general adult medical examination without abnormal vxfsidqn-ZYS-52-CM COMPARISON: None. PROCEDURE COMMENTS: AP, lateral, coned down lateral, and bilateral obliqueviews of the lumbar spine. FINDINGS: Transitional anatomy is present. There are hypoplastic ribs atthe lowest thoracic vertebrae labeled as T12. There is a partially sacralizedL5 segment. The lowest fully formed disc space labeled as L5-S1. Mild intervertebral disc space narrowing and endplate spurring. Grade 1degenerative anterolisthesis of L2-L3 measuring 2 mm. No spondylolysis. Mild multilevelfacet arthropathy. IMPRESSION: Mild multilevel degenerative changes with grade 1 degenerativespondylolisthesis at L2-L3. - us Erma Sung MD IMG DIAGNOSTIC IMAG ING ORDERABLES Final Result * HCV QUANT W/RFLX TO GENOTYPE -REF LAB (03/30/2020 9:56 AM EDT) HCV Qnt by NAAT (IU/mL) Not Detected IU/mL 04/01/2020 10:00 PM EDT [facility] HCV Qnt by NAAT (log IU/mL) Not Detected log IU/mL 04/01/2020 10:00 PM EDT [facility] Comment: Hepatitis C Virus (HCV) by Quantitative TMA result was less than 4,000 IU/mL (3.6 log IU/mL); therefore no further testing added. HCV Qnt by NAAT Interp Not Detected Not Detected 04/01/2020 10:00 PM EDT [facility] Comment: INTERPRETIVE INFORMATION: HCV by Quantitative NAAT Normal range for this assay is Not Detected . The quantitative range of this assay is 10 - 100,000,000 IU/mL (1.0 - 8.0 log IU/mL). Lower limit of quantitation (LLoQ): 10 IU/mL (1.0 log IU/mL) LLoQ values do not apply to diluted specimens. A result of Not Detected does not rule out the presence of inhibitors in the patient specimen or hepatitis C virus RNA concentrations below the level of detection of the test. Care should be taken when interpreting any single viral load determination. This test should not be used for blood donor screening, associated re-entry protocols, or for screening Human Cell, Tissues and Cellular Tissue-Based Products (HCT/P). Performed by [facility], [address] [place] [address] [email or web address], Clau Yu MD, Lab. Director Blood VENOUS BLOOD / Unknown Venipuncture / Unknown 03/30/2020 9:56 AM EDT 03/30/2020 9:56 AM EDT Erma Sung MD IMMUNOLOGY ORDERABL ES Final Result [facility] [address] [place] [address] * (ABNORMAL) ACUTE HEPATITIS PANEL (03/30/2020 9:56 AM EDT) Hep Bs Ag Non-Reacti ve Non-Reacti ve 03/30/2020 6:48 PM EDT [facility], [facility] Hep B Core IgM Non-Reacti ve Non-Reacti ve 03/30/2020 6:48 PM EDT [facility] Hep A IgM Non-Reacti ve Non-Reacti ve 03/30/2020 6:48 PM EDT [facility], [facility] Hep C Ab Reactive(A ) Non-Reacti ve 03/30/2020 6:48 PM EDT [facility] Comment:Reactive. Antibodies to HCV detected. >97% of specimens with high signal cutoff confirm as reactive. HCV QUANT W/RFLX TO GENOTYPE -REF LAB is suggested for newly diagnosed HCV. Blood Venipuncture / Unknown 03/30/2020 9:56 AM EDT 03/30/2020 9:56 AM EDT Erma Sung MD CHEMISTRY ORDERABLE S Final Result Performing Organization Address City/[facility]/ZIP Co de Phone Number [facility] [address] , [place] [address] * PARATHYROID HORMONE INTACT (03/30/2020 9:56 AM EDT) PTH Intact 27.10 15.00 - 65.00 pg/mL 03/30/2020 7:17 PM EDT [facility] Blood VENOUS BLOOD / Unknown Venipuncture / Unknown 03/30/2020 9:56 AM EDT 03/30/2020 9:56 AM EDT Narrative [facility] - 03/30/2020 7:17 PM EDT Intact PTH Calcium Interpretation ------- 15 - 65 8.6 - 10.2 Normal > 65 > 10.2 Primary Hyperparathyroidism < 20 > 10.2 Non-Parathyroid hypercalcemia < 15 < 8.6 Hypoparathyroidism Consider the above as guidelines only. PTH results should be interpreted in conjunction with the total or ionized calcium level. The finding of a persistently high-normal calcium accompanied by a high-normal PTH (or a low-normal calcium accompanied by a low-normal PTH) warrants further investigation. Although the PTH may itself be within normal limits, it may be inappropriately high (or low) relative to the circulating calcium level. Ingestion of sabrina doses of biotin (>5 mg/day) taken within 8 hours of drawing blood sample can interfere with this immunoassay test. us Erma Sung MD CHEMISTRY ORDERABLE S Final Result Performing Organization Address City/[facility]/ZIP Co de Phone Number [employer] [address] , [place] [address] * FERRITIN (03/30/2020 9:56 AM EDT) Pathologist [facility] Ferritin 54 13 - 150 ng/mL 03/30/2020 6:22 PM EDT [facility] Blood Venipuncture / Unknown 03/30/2020 9:56 AM EDT 03/30/2020 9:56 AM EDT Narrative [facility] - 03/30/2020 6:22 PM EDT Ingestion of sabrina doses of biotin (>5 mg/day) taken within 8 hours of drawing blood sample can interfere with this immunoassay test. us Erma Sung MD CHEMISTRY ORDERABLE S Final Result [facility], [place] [address] * POCT HEMOGLOBIN (08/03/2019 11:23 AM EST) Hemoglobin 12.6 11.0 - 16.0 GM/DL SEP OFFICE Lot Number [id number] SEP OFFICE Expiration Date 02/03/21 SEP OFFICE SeriAl # SEP OFFICE Blood 08/03/2019 11:2 3 AM EST us Naveen Borden MD POINT OF CARE TEST ORDERABLES Fi nal Result Performing Organization Address City/[facility] Co de Phone Number SEP OFFICE * XR FEMUR LEFT AP AND LATERAL (03/29/2019 11:49 AM EDT) Anatomical Region Laterality Modality Thigh Radiographic Aidee ging 03/29/2019 11:4 9 AM EDT Impressions 03/29/2019 12:09 PM EDT No acute bony abnormality. - Narrative 03/29/2019 12:09 PM EDT XR FEMUR LEFT AP AND LATERAL, 03/29/2019 11:49 AM CLINICAL HISTORY: -ANXIETY, pain COMPARISON: None. PROCEDURE COMMENTS: Routine views per the ordered protocol. FINDINGS: No fracture or traumatic malalignment. No soft tissue gas or foreign body. Joint spaces are maintained. No erosions or periostitis. Procedure Note Lev Gross MD - 03/29/2019 XR FEMUR LEFT AP AND LATERAL, 03/29/2019 11:49 AM CLINICAL HISTORY: -ANXIETY, pain COMPARISON: None. PROCEDURE COMMENTS: Routine views per the ordered protocol. FINDINGS: No fracture or traumatic malalignment. No soft tissue gas orforeign body. Joint spaces are maintained. No erosions or periostitis. IMPRESSION: No acute bony abnormality. - us Galina Yuen DO [facility]AGING ORDERAB LES Final Result * (ABNORMAL) CBC (12/29/2014 12:07 PM EDT) WBC 11.3(H) 4.0 - 11.0 x10(3)/mcL [facility] RBC 5.08 3.80 - 5.10 x10(6)/mcL [facility] Hgb 15.2 12.0 - 15.6 gm/dL [facility] Hct 44.4 35.7 - 45.9 % [facility] MCV 87.5 82.5 - 99.8 fL [facility] MCH 30.0 27.0 - 34.3 pg [facility] MCHC 34.3 32.1 - 35.3 gm/dL [facility] RDW 13.8 11.5 - 15.0 % [facility] Platelet 293 144 - 423 x10(3)/mcL [facility] MPV 8.8 6.8 - 10.8 fL [facility] Blood specimen (specimen) UPPER LIMB STRUCTURE / Unknown 12/29/2014 12:07 PM EDT 12/29/2014 7:52 PM EDT us Sixto Byrne MD HEMATOLOGY ORDERABLES Final Res ult [facility] [address] [place] [address] * HEPATIC FUNCTION PANEL (12/29/2014 12:07 PM EDT) Total Protein 7.9 6.4 - 8.3 gm/dL [facility] Albumin 4.9 3.5 - 5.2 gm/dL [facility] Bili Direct <0.2 0.0 - 0.3 mg/dL [facility] Bili Total 0.6 0.1 - 1.3 mg/dL [facility] AST 12 <=40 IU/L [facility] ALT 14 <=41 IU/L [facility] Alk Phos 71 35 - 104 IU/L [facility] Blood specimen (specimen) UPPER LIMB STRUCTURE / Unknown 12/29/2014 12:07 PM EDT 12/29/2014 7:52 PM EDT us Sixto Byrne MD CHEMISTRY ORDERABLES Edited Res ult - Final [facility] [address] [place] [address] Visit Diagnoses Diagnosis Start Date Routine general medical examination at a health care facility 12/29/2014 Weight gain Abnormal weight gain 12/29/2014 Vitamin D deficiency Unspecified vitamin D deficiency 12/29/2014 Establishing care with new doctor, encounter for 12/29/2014 Thoracic back pain, unspecified back pain laterality 12/29/2014 Bilateral hand numbness Disturbance of skin sensation 12/29/2014 Cervical pain Cervicalgia 12/29/2014 Low back pain, unspecified back pain laterality, with sciatica presence unspecified 12/29/2014 Routine general medical examination at a health care facility 12/29/2014 Weight gain Abnormal weight gain 12/29/2014 Vitamin D deficiency Unspecified vitamin D deficiency 12/29/2014 DDD (degenerative disc disease), lumbar Degeneration of lumbar or lumbosacral intervertebral disc 10/25/2018 Annual physical exam Routine general medical examination at a health care facility 10/25/2018 Acute bronchitis, unspecified organism 10/25/2018 Odontalgia Unspecified disorder of the teeth and supporting structures 03/12/2019 Anxiety Anxiety state, unspecified 03/29/2019 Contusion of left lower extremity, initial encounter 03/29/2019 Right leg numbness Disturbance of skin sensation 04/17/2019 Essential hypertension Unspecified essential hypertension 04/17/2019 Depression with anxiety Dysthymic disorder 04/17/2019 Chronic left-sided low back pain with left-sided sciatica 04/17/2019 Essential hypertension Unspecified essential hypertension 08/03/2019 Depression with anxiety Dysthymic disorder 08/03/2019 Epigastric abdominal pain Abdominal pain, epigastric 08/03/2019 Rectal bleed Hemorrhage of rectum and anus 08/03/2019 Gastroesophageal reflux disease with esophagitis 08/03/2019 DDD (degenerative disc disease), lumbar Degeneration of lumbar or lumbosacral intervertebral disc 10/10/2019 Establishing care with new doctor, encounter for 03/30/2020 Chronic left-sided low back pain with left-sided sciatica 03/30/2020 Chronic pain of both hips 03/30/2020 Rectal bleeding Hemorrhage of rectum and anus 03/30/2020 Generalized anxiety disorder 03/30/2020 Depression with anxiety Dysthymic disorder 03/30/2020 Essential hypertension Unspecified essential hypertension 03/30/2020 Cigarette nicotine dependence without complication Tobacco use disorder 03/30/2020 Well adult exam Routine general medical examination at a health care facility 03/30/2020 Glucose intolerance 03/30/2020 Gastroesophageal reflux disease, unspecified whether esophagitis present 03/30/2020 COPD, mild (HCC) Chronic airway obstruction, not elsewhere classified 03/30/2020 Screening for hyperlipidemia Screening for lipoid disorders 03/30/2020 Hypercalcemia 03/30/2020 Vitamin D deficiency Unspecified vitamin D deficiency 03/30/2020 Screening for deficiency anemia Screening for other and unspecified deficiency anemia 03/30/2020 Screening for thyroid disorder 03/30/2020 Need for hepatitis C screening test Special screening examination for other specified viral diseases 03/30/2020 Breast mass in female Lump or mass in breast 03/30/2020 Elevated glucose Other abnormal glucose 03/30/2020 Chronic left-sided low back pain with left-sided sciatica 03/31/2020 Well adult exam Routine general medical examination at a health care facility 03/31/2020 Chronic pain of both hips 03/31/2020 Cigarette nicotine dependence without complication Tobacco use disorder 03/31/2020 COPD, mild (HCC) Chronic airway obstruction, not elsewhere classified 03/31/2020 Chronic left-sided low back pain with left-sided sciatica 04/13/2020 DDD (degenerative disc disease), lumbar Degeneration of lumbar or lumbosacral intervertebral disc 04/13/2020 Iron deficiency anemia due to chronic blood loss Iron deficiency anemia secondary to blood loss (chronic) 04/15/2020 Hyperuricemia Other abnormal blood chemistry 04/15/2020 Vitamin D deficiency Unspecified vitamin D deficiency 04/15/2020 Abdominal pain, RUQ (right upper quadrant) Abdominal pain, right upper quadrant 04/15/2020 Abnormal TSH Other abnormal clinical finding 04/15/2020 Hypercalcemia 04/15/2020 Chronic left-sided low back pain with left-sided sciatica 04/15/2020 Chronic left-sided low back pain with left-sided sciatica 04/24/2020 Chronic left-sided low back pain with left-sided sciatica 05/09/2020 DDD (degenerative disc disease), lumbar Degeneration of lumbar or lumbosacral intervertebral disc 05/09/2020 DDD (degenerative disc disease), lumbar Degeneration of lumbar or lumbosacral intervertebral disc 05/12/2020 Facet arthritis of lumbar region Lumbosacral spondylosis without myelopathy 05/12/2020 Arthropathy of spinal facet joint concurrent with and due to effusion 05/12/2020 DDD (degenerative disc disease), lumbar Degeneration of lumbar or lumbosacral intervertebral disc 05/12/2020 Facet arthritis of lumbar region Lumbosacral spondylosis without myelopathy 05/12/2020 Arthropathy of spinal facet joint concurrent with and due to effusion 05/12/2020 Contusion of left thumb without damage to nail, initial encounter 05/27/2020 Contusion of left thumb without damage to nail, initial encounter 06/02/2020 DDD (degenerative disc disease), lumbar Degeneration of lumbar or lumbosacral intervertebral disc 06/06/2020 Facet arthritis of lumbar region Lumbosacral spondylosis without myelopathy 06/06/2020 Arthropathy of spinal facet joint concurrent with and due to effusion 06/06/2020 Abdominal pain, RUQ (right upper quadrant) Abdominal pain, right upper quadrant 06/20/2020 DDD (degenerative disc disease), lumbar Degeneration of lumbar or lumbosacral intervertebral disc 06/22/2020 Facet arthritis of lumbar region Lumbosacral spondylosis without myelopathy 06/22/2020 Arthropathy of spinal facet joint concurrent with and due to effusion 06/22/2020 Calculus of gallbladder without cholecystitis without obstruction Calculus of gallbladder without mention of cholecystitis or obstruction 06/22/2020 Pre-op testing Preoperative examination, unspecified 06/26/2020 Encounter for laboratory testing for COVID-19 virus 06/26/2020 Calculus of gallbladder without cholecystitis without obstruction Calculus of gallbladder without mention of cholecystitis or obstruction 06/26/2020 Biliary colic Calculus of gallbladder without mention of cholecystitis or obstruction 06/26/2020 Calculus of gallbladder without cholecystitis without obstruction Calculus of gallbladder without mention of cholecystitis or obstruction 06/29/2020 Calculus of gallbladder without cholecystitis without obstruction Calculus of gallbladder without mention of cholecystitis or obstruction 06/29/2020 Preop testing Preoperative examination, unspecified 06/29/2020 Essential hypertension Unspecified essential hypertension 06/29/2020 S/P laparoscopic cholecystectomy Other postprocedural status 07/01/2020 Pain associated with surgical procedure 07/01/2020 Calculus of gallbladder without cholecystitis without obstruction Calculus of gallbladder without mention of cholecystitis or obstruction 07/01/2020 Constipation due to opioid therapy 07/07/2020 S/P laparoscopic cholecystectomy Other postprocedural status 07/07/2020 Lumbar degenerative disc disease Degeneration of lumbar or lumbosacral intervertebral disc 07/07/2020 Lumbosacral spondylosis without myelopathy 07/07/2020 Chronic pain syndrome 07/07/2020 Depression with anxiety Dysthymic disorder 07/10/2020 Essential hypertension Unspecified essential hypertension 07/10/2020 DDD (degenerative disc disease), lumbar Degeneration of lumbar or lumbosacral intervertebral disc 07/10/2020 Facet arthritis of lumbar region Lumbosacral spondylosis without myelopathy 07/10/2020 Arthropathy of spinal facet joint concurrent with and due to effusion 07/10/2020 Calculus of gallbladder without cholecystitis without obstruction Calculus of gallbladder without mention of cholecystitis or obstruction 07/10/2020 Sore throat Acute pharyngitis 07/27/2020 DDD (degenerative disc disease), lumbar Degeneration of lumbar or lumbosacral intervertebral disc 07/27/2020 Facet arthritis of lumbar region Lumbosacral spondylosis without myelopathy 07/27/2020 Arthropathy of spinal facet joint concurrent with and due to effusion 07/27/2020 Snoring Other dyspnea and respiratory abnormality 07/27/2020 Vaping nicotine dependence, tobacco product 07/27/2020 Breast pain, left Mastodynia 08/08/2020 Opiate overdose, accidental or unintentional, initial encounter ([facility]) 08/08/2020 Essential hypertension Unspecified essential hypertension 08/22/2020 DDD (degenerative disc disease), lumbar Degeneration of lumbar or lumbosacral intervertebral disc 08/22/2020 Facet arthritis of lumbar region Lumbosacral spondylosis without myelopathy 08/22/2020 Arthropathy of spinal facet joint concurrent with and due to effusion 08/22/2020 DDD (degenerative disc disease), lumbar Degeneration of lumbar or lumbosacral intervertebral disc 08/22/2020 Facet arthritis of lumbar region Lumbosacral spondylosis without myelopathy 08/22/2020 Arthropathy of spinal facet joint concurrent with and due to effusion 08/22/2020 DDD (degenerative disc disease), lumbar Degeneration of lumbar or lumbosacral intervertebral disc 08/22/2020 Facet arthritis of lumbar region Lumbosacral spondylosis without myelopathy 08/22/2020 Arthropathy of spinal facet joint concurrent with and due to effusion 08/22/2020 DDD (degenerative disc disease), lumbar Degeneration of lumbar or lumbosacral intervertebral disc 08/24/2020 Facet arthritis of lumbar region Lumbosacral spondylosis without myelopathy 08/24/2020 Arthropathy of spinal facet joint concurrent with and due to effusion 08/24/2020 DDD (degenerative disc disease), lumbar Degeneration of lumbar or lumbosacral intervertebral disc 08/24/2020 Facet arthritis of lumbar region Lumbosacral spondylosis without myelopathy 08/24/2020 Arthropathy of spinal facet joint concurrent with and due to effusion 08/24/2020 DDD (degenerative disc disease), lumbar Degeneration of lumbar or lumbosacral intervertebral disc 08/24/2020 Facet arthritis of lumbar region Lumbosacral spondylosis without myelopathy 08/24/2020 Arthropathy of spinal facet joint concurrent with and due to effusion 08/24/2020 Essential hypertension Unspecified essential hypertension 08/24/2020 Depression with anxiety Dysthymic disorder 08/31/2020 Breast pain in female Mastodynia 08/31/2020 Opioid use 08/31/2020 Easy bruising Other symptoms involving skin and integumentary tissues 09/21/2020 Cigarette nicotine dependence without complication Tobacco use disorder 09/21/2020 Glucose intolerance 09/21/2020 Hypercalcemia 09/21/2020 Hyperuricemia Other abnormal blood chemistry 09/21/2020 Iron deficiency anemia due to chronic blood loss Iron deficiency anemia secondary to blood loss (chronic) 09/21/2020 Vitamin D deficiency Unspecified vitamin D deficiency 09/21/2020 Abnormal TSH Other abnormal clinical finding 09/21/2020 Depression with anxiety Dysthymic disorder 09/21/2020 S/P laparoscopic cholecystectomy Other postprocedural status 09/21/2020 DDD (degenerative disc disease), lumbar Degeneration of lumbar or lumbosacral intervertebral disc 09/21/2020 Facet arthritis of lumbar region Lumbosacral spondylosis without myelopathy 09/21/2020 Arthropathy of spinal facet joint concurrent with and due to effusion 09/21/2020 Essential hypertension Unspecified essential hypertension 09/21/2020 Gastroesophageal reflux disease, unspecified whether esophagitis present 09/21/2020 Depression with anxiety Dysthymic disorder 10/19/2020 Vitamin D deficiency Unspecified vitamin D deficiency 10/19/2020 DDD (degenerative disc disease), lumbar Degeneration of lumbar or lumbosacral intervertebral disc 10/19/2020 Facet arthritis of lumbar region Lumbosacral spondylosis without myelopathy 10/19/2020 Arthropathy of spinal facet joint concurrent with and due to effusion 10/19/2020 Constipation, unspecified constipation type 10/19/2020 Iron deficiency anemia due to chronic blood loss Iron deficiency anemia secondary to blood loss (chronic) 11/06/2020 Hyperuricemia Other abnormal blood chemistry 11/06/2020 Vitamin D deficiency Unspecified vitamin D deficiency 11/06/2020 Hypercalcemia 11/06/2020 Easy bruising Other symptoms involving skin and integumentary tissues 11/06/2020 Cigarette nicotine dependence without complication Tobacco use disorder 11/06/2020 Glucose intolerance 11/06/2020 Abnormal TSH Other abnormal clinical finding 11/06/2020 Pap smear for cervical cancer screening Screening for malignant neoplasm of the cervix 11/06/2020 Menstrual bleeding problem Unspecified disorder of menstruation and other abnormal bleeding from female genital tract 11/06/2020 DDD (degenerative disc disease), lumbar Degeneration of lumbar or lumbosacral intervertebral disc 11/17/2020 Facet arthritis of lumbar region Lumbosacral spondylosis without myelopathy 11/17/2020 Arthropathy of spinal facet joint concurrent with and due to effusion 11/17/2020 High risk medications (not anticoagulants) long-term use Encounter for long-term (current) use of other medications 11/17/2020 DDD (degenerative disc disease), lumbar Degeneration of lumbar or lumbosacral intervertebral disc 11/17/2020 Facet arthritis of lumbar region Lumbosacral spondylosis without myelopathy 11/17/2020 Arthropathy of spinal facet joint concurrent with and due to effusion 11/17/2020 DDD (degenerative disc disease), lumbar Degeneration of lumbar or lumbosacral intervertebral disc 11/17/2020 Facet arthritis of lumbar region Lumbosacral spondylosis without myelopathy 11/17/2020 Arthropathy of spinal facet joint concurrent with and due to effusion 11/17/2020 Depression with anxiety Dysthymic disorder 11/17/2020 DDD (degenerative disc disease), lumbar Degeneration of lumbar or lumbosacral intervertebral disc 11/19/2020 Facet arthritis of lumbar region Lumbosacral spondylosis without myelopathy 11/19/2020 Arthropathy of spinal facet joint concurrent with and due to effusion 11/19/2020 High risk medications (not anticoagulants) long-term use Encounter for long-term (current) use of other medications 11/19/2020 Depression with anxiety Dysthymic disorder 12/18/2020 DDD (degenerative disc disease), lumbar Degeneration of lumbar or lumbosacral intervertebral disc 12/18/2020 Facet arthritis of lumbar region Lumbosacral spondylosis without myelopathy 12/18/2020 Arthropathy of spinal facet joint concurrent with and due to effusion 12/18/2020 DDD (degenerative disc disease), lumbar Degeneration of lumbar or lumbosacral intervertebral disc 12/18/2020 Facet arthritis of lumbar region Lumbosacral spondylosis without myelopathy 12/18/2020 Arthropathy of spinal facet joint concurrent with and due to effusion 12/18/2020 Depression with anxiety Dysthymic disorder 12/18/2020 DDD (degenerative disc disease), lumbar Degeneration of lumbar or lumbosacral intervertebral disc 12/18/2020 Facet arthritis of lumbar region Lumbosacral spondylosis without myelopathy 12/18/2020 Arthropathy of spinal facet joint concurrent with and due to effusion 12/18/2020 DDD (degenerative disc disease), lumbar Degeneration of lumbar or lumbosacral intervertebral disc 12/19/2020 Facet arthritis of lumbar region Lumbosacral spondylosis without myelopathy 12/19/2020 Arthropathy of spinal facet joint concurrent with and due to effusion 12/19/2020 Essential hypertension Unspecified essential hypertension 12/21/2020 DDD (degenerative disc disease), lumbar Degeneration of lumbar or lumbosacral intervertebral disc 12/21/2020 Facet arthritis of lumbar region Lumbosacral spondylosis without myelopathy 12/21/2020 Arthropathy of spinal facet joint concurrent with and due to effusion 12/21/2020 DDD (degenerative disc disease), lumbar Degeneration of lumbar or lumbosacral intervertebral disc 12/22/2020 Facet arthritis of lumbar region Lumbosacral spondylosis without myelopathy 12/22/2020 Arthropathy of spinal facet joint concurrent with and due to effusion 12/22/2020 DDD (degenerative disc disease), lumbar Degeneration of lumbar or lumbosacral intervertebral disc 12/23/2020 Facet arthritis of lumbar region Lumbosacral spondylosis without myelopathy 12/23/2020 Arthropathy of spinal facet joint concurrent with and due to effusion 12/23/2020 Excessive vaginal bleeding 12/23/2020 DDD (degenerative disc disease), lumbar Degeneration of lumbar or lumbosacral intervertebral disc 12/27/2020 Facet arthritis of lumbar region Lumbosacral spondylosis without myelopathy 12/27/2020 Arthropathy of spinal facet joint concurrent with and due to effusion 12/27/2020 DDD (degenerative disc disease), lumbar Degeneration of lumbar or lumbosacral intervertebral disc 12/30/2020 Facet arthritis of lumbar region Lumbosacral spondylosis without myelopathy 12/30/2020 Arthropathy of spinal facet joint concurrent with and due to effusion 12/30/2020 DDD (degenerative disc disease), lumbar Degeneration of lumbar or lumbosacral intervertebral disc 12/30/2020 Facet arthritis of lumbar region Lumbosacral spondylosis without myelopathy 12/30/2020 Arthropathy of spinal facet joint concurrent with and due to effusion 12/30/2020 Menstrual bleeding problem Unspecified disorder of menstruation and other abnormal bleeding from female genital tract 01/05/2021 Numbness and tingling in left hand Disturbance of skin sensation 01/05/2021 DDD (degenerative disc disease), lumbar Degeneration of lumbar or lumbosacral intervertebral disc 01/26/2021 Facet arthritis of lumbar region Lumbosacral spondylosis without myelopathy 01/26/2021 Arthropathy of spinal facet joint concurrent with and due to effusion 01/26/2021 Depression with anxiety Dysthymic disorder 02/24/2021 Essential hypertension Unspecified essential hypertension 02/24/2021 DDD (degenerative disc disease), lumbar Degeneration of lumbar or lumbosacral intervertebral disc 02/24/2021 Facet arthritis of lumbar region Lumbosacral spondylosis without myelopathy 02/24/2021 Arthropathy of spinal facet joint concurrent with and due to effusion 02/24/2021 DDD (degenerative disc disease), lumbar Degeneration of lumbar or lumbosacral intervertebral disc 02/25/2021 Facet arthritis of lumbar region Lumbosacral spondylosis without myelopathy 02/25/2021 Arthropathy of spinal facet joint concurrent with and due to effusion 02/25/2021 Gastroesophageal reflux disease, unspecified whether esophagitis present 03/08/2021 DDD (degenerative disc disease), lumbar Degeneration of lumbar or lumbosacral intervertebral disc 03/24/2021 Facet arthritis of lumbar region Lumbosacral spondylosis without myelopathy 03/24/2021 Arthropathy of spinal facet joint concurrent with and due to effusion 03/24/2021 High risk medications (not anticoagulants) long-term use Encounter for long-term (current) use of other medications 03/29/2021 Finger pain, left Pain in limb 03/29/2021 High risk medications (not anticoagulants) long-term use Encounter for long-term (current) use of other medications 03/29/2021 DDD (degenerative disc disease), lumbar Degeneration of lumbar or lumbosacral intervertebral disc 03/30/2021 Facet arthritis of lumbar region Lumbosacral spondylosis without myelopathy 03/30/2021 Arthropathy of spinal facet joint concurrent with and due to effusion 03/30/2021 Left hand pain Pain in limb 04/05/2021 Mallet deformity of left middle finger 04/05/2021 Flea bite of multiple sites 04/14/2021 Finger pain, right Pain in limb 04/14/2021 DDD (degenerative disc disease), lumbar Degeneration of lumbar or lumbosacral intervertebral disc 04/14/2021 Facet arthritis of lumbar region Lumbosacral spondylosis without myelopathy 04/14/2021 Arthropathy of spinal facet joint concurrent with and due to effusion 04/14/2021 Constipation, unspecified constipation type 04/14/2021 DDD (degenerative disc disease), lumbar Degeneration of lumbar or lumbosacral intervertebral disc 04/26/2021 Facet arthritis of lumbar region Lumbosacral spondylosis without myelopathy 04/26/2021 Arthropathy of spinal facet joint concurrent with and due to effusion 04/26/2021 Yeast infection Other and unspecified mycoses 04/27/2021 Elevated glucose Other abnormal glucose 04/27/2021 Hyperuricemia Other abnormal blood chemistry 04/27/2021 Glucose intolerance 04/27/2021 Iron deficiency anemia due to chronic blood loss Iron deficiency anemia secondary to blood loss (chronic) 04/27/2021 Screening for thyroid disorder 04/27/2021 Vitamin D deficiency Unspecified vitamin D deficiency 04/27/2021 Screening for cholesterol level Screening for lipoid disorders 04/27/2021 DDD (degenerative disc disease), lumbar Degeneration of lumbar or lumbosacral intervertebral disc 05/27/2021 Facet arthritis of lumbar region Lumbosacral spondylosis without myelopathy 05/27/2021 Arthropathy of spinal facet joint concurrent with and due to effusion 05/27/2021 DDD (degenerative disc disease), lumbar Degeneration of lumbar or lumbosacral intervertebral disc 05/28/2021 Facet arthritis of lumbar region Lumbosacral spondylosis without myelopathy 05/28/2021 Arthropathy of spinal facet joint concurrent with and due to effusion 05/28/2021 DDD (degenerative disc disease), lumbar Degeneration of lumbar or lumbosacral intervertebral disc 06/25/2021 Facet arthritis of lumbar region Lumbosacral spondylosis without myelopathy 06/25/2021 Arthropathy of spinal facet joint concurrent with and due to effusion 06/25/2021 Essential hypertension Unspecified essential hypertension 06/28/2021 Gastroesophageal reflux disease, unspecified whether esophagitis present 06/28/2021 DDD (degenerative disc disease), lumbar Degeneration of lumbar or lumbosacral intervertebral disc 07/24/2021 Facet arthritis of lumbar region Lumbosacral spondylosis without myelopathy 07/24/2021 Arthropathy of spinal facet joint concurrent with and due to effusion 07/24/2021 Essential hypertension Unspecified essential hypertension 08/23/2021 Gastroesophageal reflux disease, unspecified whether esophagitis present 08/23/2021 DDD (degenerative disc disease), lumbar Degeneration of lumbar or lumbosacral intervertebral disc 08/23/2021 Facet arthritis of lumbar region Lumbosacral spondylosis without myelopathy 08/23/2021 Arthropathy of spinal facet joint concurrent with and due to effusion 08/23/2021 Encounter for medication monitoring Encounter for therapeutic drug monitoring 08/31/2021 COPD, mild (HCC) Chronic airway obstruction, not elsewhere classified 08/31/2021 Well woman exam (no gynecological exam) Routine general medical examination at a health care facility 08/31/2021 Iron deficiency anemia due to chronic blood loss Iron deficiency anemia secondary to blood loss (chronic) 08/31/2021 Yeast infection Other and unspecified mycoses 08/31/2021 Elevated glucose Other abnormal glucose 08/31/2021 Hyperuricemia Other abnormal blood chemistry 08/31/2021 Glucose intolerance 08/31/2021 Vitamin D deficiency Unspecified vitamin D deficiency 08/31/2021 Screening for cholesterol level Screening for lipoid disorders 08/31/2021 Screening for thyroid disorder 08/31/2021 DDD (degenerative disc disease), lumbar Degeneration of lumbar or lumbosacral intervertebral disc 08/31/2021 Facet arthritis of lumbar region Lumbosacral spondylosis without myelopathy 08/31/2021 Arthropathy of spinal facet joint concurrent with and due to effusion 08/31/2021 Vitamin D deficiency Unspecified vitamin D deficiency 09/13/2021 Hyperuricemia Other abnormal blood chemistry 09/13/2021 Hypokalemia Hypopotassemia 09/13/2021 DDD (degenerative disc disease), lumbar Degeneration of lumbar or lumbosacral intervertebral disc 09/30/2021 Facet arthritis of lumbar region Lumbosacral spondylosis without myelopathy 09/30/2021 Arthropathy of spinal facet joint concurrent with and due to effusion 09/30/2021 Finger pain, right Pain in limb 10/18/2021 DDD (degenerative disc disease), lumbar Degeneration of lumbar or lumbosacral intervertebral disc 10/18/2021 Facet arthritis of lumbar region Lumbosacral spondylosis without myelopathy 10/18/2021 Arthropathy of spinal facet joint concurrent with and due to effusion 10/18/2021 COPD, mild (HCC) Chronic airway obstruction, not elsewhere classified 10/18/2021 DDD (degenerative disc disease), lumbar Degeneration of lumbar or lumbosacral intervertebral disc 11/01/2021 Facet arthritis of lumbar region Lumbosacral spondylosis without myelopathy 11/01/2021 Arthropathy of spinal facet joint concurrent with and due to effusion 11/01/2021 DDD (degenerative disc disease), lumbar Degeneration of lumbar or lumbosacral intervertebral disc 11/30/2021 Facet arthritis of lumbar region Lumbosacral spondylosis without myelopathy 11/30/2021 Arthropathy of spinal facet joint concurrent with and due to effusion 11/30/2021 Essential hypertension Unspecified essential hypertension 11/30/2021 Gastroesophageal reflux disease, unspecified whether esophagitis present 11/30/2021 Finger pain, right Pain in limb 11/30/2021 DDD (degenerative disc disease), lumbar Degeneration of lumbar or lumbosacral intervertebral disc 11/30/2021 Facet arthritis of lumbar region Lumbosacral spondylosis without myelopathy 11/30/2021 Arthropathy of spinal facet joint concurrent with and due to effusion 11/30/2021 COPD, mild (HCC) Chronic airway obstruction, not elsewhere classified 11/30/2021 DDD (degenerative disc disease), lumbar Degeneration of lumbar or lumbosacral intervertebral disc 12/03/2021 Facet arthritis of lumbar region Lumbosacral spondylosis without myelopathy 12/03/2021 Arthropathy of spinal facet joint concurrent with and due to effusion 12/03/2021 Hypokalemia Hypopotassemia 12/15/2021 DDD (degenerative disc disease), lumbar Degeneration of lumbar or lumbosacral intervertebral disc 12/15/2021 Encounter for medication monitoring Encounter for therapeutic drug monitoring 12/15/2021 Vitamin D deficiency Unspecified vitamin D deficiency 12/15/2021 Glucose intolerance 12/15/2021 Hyperuricemia Other abnormal blood chemistry 12/15/2021 B12 deficiency due to diet Other B-complex deficiencies 12/15/2021 Essential hypertension Unspecified essential hypertension 12/15/2021 Hypokalemia Hypopotassemia 12/15/2021 Vitamin D deficiency Unspecified vitamin D deficiency 12/15/2021 Hyperuricemia Other abnormal blood chemistry 12/15/2021 Glucose intolerance 12/15/2021 Essential hypertension Unspecified essential hypertension 12/15/2021 DDD (degenerative disc disease), lumbar Degeneration of lumbar or lumbosacral intervertebral disc 12/15/2021 Encounter for medication monitoring Encounter for therapeutic drug monitoring 12/15/2021 B12 deficiency due to diet Other B-complex deficiencies 12/15/2021 COPD, mild (HCC) Chronic airway obstruction, not elsewhere classified 12/15/2021 DDD (degenerative disc disease), lumbar Degeneration of lumbar or lumbosacral intervertebral disc 12/29/2021 Facet arthritis of lumbar region Lumbosacral spondylosis without myelopathy 12/29/2021 Arthropathy of spinal facet joint concurrent with and due to effusion 12/29/2021 DDD (degenerative disc disease), lumbar Degeneration of lumbar or lumbosacral intervertebral disc 01/18/2022 Facet arthritis of lumbar region Lumbosacral spondylosis without myelopathy 01/18/2022 Arthropathy of spinal facet joint concurrent with and due to effusion 01/18/2022 DDD (degenerative disc disease), lumbar Degeneration of lumbar or lumbosacral intervertebral disc 01/19/2022 Facet arthritis of lumbar region Lumbosacral spondylosis without myelopathy 01/19/2022 Arthropathy of spinal facet joint concurrent with and due to effusion 01/19/2022 DDD (degenerative disc disease), lumbar Degeneration of lumbar or lumbosacral intervertebral disc 01/19/2022 Facet arthritis of lumbar region Lumbosacral spondylosis without myelopathy 01/19/2022 Arthropathy of spinal facet joint concurrent with and due to effusion 01/19/2022 DDD (degenerative disc disease), lumbar Degeneration of lumbar or lumbosacral intervertebral disc 01/26/2022 Facet arthritis of lumbar region Lumbosacral spondylosis without myelopathy 01/26/2022 Arthropathy of spinal facet joint concurrent with and due to effusion 01/26/2022 Finger pain, right Pain in limb 01/26/2022 DDD (degenerative disc disease), lumbar Degeneration of lumbar or lumbosacral intervertebral disc 01/26/2022 Facet arthritis of lumbar region Lumbosacral spondylosis without myelopathy 01/26/2022 Arthropathy of spinal facet joint concurrent with and due to effusion 01/26/2022 DDD (degenerative disc disease), lumbar Degeneration of lumbar or lumbosacral intervertebral disc 02/11/2022 Facet arthritis of lumbar region Lumbosacral spondylosis without myelopathy 02/11/2022 Arthropathy of spinal facet joint concurrent with and due to effusion 02/11/2022 DDD (degenerative disc disease), lumbar Degeneration of lumbar or lumbosacral intervertebral disc 02/11/2022 Facet arthritis of lumbar region Lumbosacral spondylosis without myelopathy 02/11/2022 Arthropathy of spinal facet joint concurrent with and due to effusion 02/11/2022 DDD (degenerative disc disease), lumbar Degeneration of lumbar or lumbosacral intervertebral disc 02/18/2022 Facet arthritis of lumbar region Lumbosacral spondylosis without myelopathy 02/18/2022 Arthropathy of spinal facet joint concurrent with and due to effusion 02/18/2022 DDD (degenerative disc disease), lumbar Degeneration of lumbar or lumbosacral intervertebral disc 02/21/2022 Facet arthritis of lumbar region Lumbosacral spondylosis without myelopathy 02/21/2022 Arthropathy of spinal facet joint concurrent with and due to effusion 02/21/2022 Finger pain, right Pain in limb 02/26/2022 DDD (degenerative disc disease), lumbar Degeneration of lumbar or lumbosacral intervertebral disc 02/26/2022 Facet arthritis of lumbar region Lumbosacral spondylosis without myelopathy 02/26/2022 Arthropathy of spinal facet joint concurrent with and due to effusion 02/26/2022 DDD (degenerative disc disease), lumbar Degeneration of lumbar or lumbosacral intervertebral disc 03/02/2022 Facet arthritis of lumbar region Lumbosacral spondylosis without myelopathy 03/02/2022 Arthropathy of spinal facet joint concurrent with and due to effusion 03/02/2022 DDD (degenerative disc disease), lumbar Degeneration of lumbar or lumbosacral intervertebral disc 03/23/2022 Facet arthritis of lumbar region Lumbosacral spondylosis without myelopathy 03/23/2022 Arthropathy of spinal facet joint concurrent with and due to effusion 03/23/2022 DDD (degenerative disc disease), lumbar Degeneration of lumbar or lumbosacral intervertebral disc 03/23/2022 Facet arthritis of lumbar region Lumbosacral spondylosis without myelopathy 03/23/2022 Arthropathy of spinal facet joint concurrent with and due to effusion 03/23/2022 DDD (degenerative disc disease), lumbar Degeneration of lumbar or lumbosacral intervertebral disc 03/28/2022 Facet arthritis of lumbar region Lumbosacral spondylosis without myelopathy 03/28/2022 Arthropathy of spinal facet joint concurrent with and due to effusion 03/28/2022 Vitamin D deficiency Unspecified vitamin D deficiency 03/28/2022 Hyperuricemia Other abnormal blood chemistry 03/28/2022 Glucose intolerance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 of lumbar region with discogenic back pain 12/17/2024 Chronic low back pain, unspecified back pain laterality, unspecified whether sciatica present 12/17/2024 Calculus of gallbladder without cholecystitis without obstruction Calculus of gallbladder without mention of cholecystitis or obstruction 06/29/2020 Goals Goal Patient Goal Type Associated Problems Recent Progress Patient-Stated? 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
--- NOTE | 2024-12-18 15:13 | HMH.EDGENADL ---
Discharge Plan Disposition Patient Disposition: Home, Self-Care Condition: Good Prescriptions Prescriptions: No Action Jardiance 10 mg tablet PO lisinopril 20 mg tablet PO albuterol sulfate 90 mcg/actuation HFA aerosol inhaler 1 inh inhalation QID Ozempic 1 mg/dose (4 mg/3 mL) pen injector 1 mg SQ WEEKLY Qty: 3 3RF oxycodone-acetaminophen [Percocet] 5-325 mg tablet 1 tab PO DAILY PRN (Reason: pain) Qty: 20 0RF Referrals Follow up/Referrals: Alvaro Lopez DO [Staff Physician, Orthopedics] - See instructions Harlan Fulton MD [Primary Care Provider, Family Practice] - See instructions Activity Restrictions/Add. Instructions Additional Instructions/Restrictions: Please follow-up with your family doctor in the upcoming days/weeks, please follow-up with orthopedic doctor in the upcoming days/weeks, please remain in the boot for symptomatic relief comfort, you do not have to bathe in the boot, you do not have to wear a boot while sleeping/around your house, I recommend other anti-inflammatory medications such as ibuprofen and Tylenol, be mindful of your Tylenol dosage as your current everyday pain medications have Tylenol in them as well. I also recommend rest, ice, and elevation of your left foot/ankle, please return to the emergency department with any worsening signs or symptoms. Clinical Impressions Clinical Impression: Left ankle sprain Print Language Print Language: Hungarian Discharge ED Provider: Weston Vance General Adult HPI <ALAN Mike - Last Filed: 12/18/24 17:00> General Chief complaint: Extremity Injury, Lower Stated complaint: AO 12/16/24 1100 injury left ankle Time Seen by Provider: 12/18/24 15:11 Mode of Arrival: Ambulatory Source of Information: Patient Description of Symptoms (Recalled from ER Triage Doc. by RN): Patient states on Monday12/16/24 she was climbing up onto a houseboat and her left leg gave out because she has chronic back pain and she injured her left ankle. Patient states she takes Percocet 5/325 all the time, took it this morning, and then also took 400 mg Ibuprofen at 1030 this morning with no relief. History of Present Illness HPI narrative: 44-year-old female presents emergency department with left ankle/foot/leg pain after an injury that occurred on 12/16/2024, where she was going to get on her boat, when she slipped and fell between the dock and the boat, in an inverted fashion, she has difficulty ambulating on the leg, she endorses radicular type symptomatology from her lower back that is chronic she follows with pain management for this, and as well as numbness and tingling which attributed to her fall, thus making most likely mechanical fall, she denies any fever chills presyncope or syncopal episodes, she does admit to some nausea at times, but is in quite amount of pain, she took Percocet 10/12/2024 p.o. this morning with little to no relief of her symptomatology, she has not yet tried any other medications, she has had difficulty ambulating on the affected extremity, she noticed swelling to the area as well, she denies any abdominal pain, vomiting, no constipation no diarrhea no urinary symptoms, no chest pain or shortness of breath. Initial triage vitals are unremarkable, other past medical history is consistent with T2DM, hypertension, chronic lumbar spine pain/degenerative disc disease. Onset (ago): day(s) Related Data Home Medications ?Medication ?Instructions ?Recorded ?Confirmed albuterol sulfate 90 mcg/actuation 1 inh inhalation QID 10/25/24 12/18/24 aerosol inhaler empagliflozin 10 mg tablet mg PO 10/25/24 12/18/24 (Jardiance) lisinopril 20 mg tablet mg PO 10/25/24 12/18/24 Previous Rx's ?Medication ?Instructions ?Recorded semaglutide 1 mg/dose (4 mg/3 mL) 1 mg (0.75 mL) SQ WEEKLY #3 mL 11/29/24 subcutaneous pen injector (Ozempic) oxycodone-acetaminophen 5 mg-325 1 tab PO DAILY PRN pain #20 tabs 12/02/24 mg tablet (Percocet) Allergies Allergy/AdvReac Type Severity Reaction Status Date / Time tramadol Allergy Mild Vomiting Verified 12/18/24 13:38 codeine Allergy Unknown Unknown Verified 12/18/24 15:28 allergy reaction dextromethorphan Allergy Unknown Unknown Verified 12/18/24 15:28 allergy reaction meperidine Allergy Unknown Unknown Verified 12/18/24 15:28 allergy reaction Penicillins Allergy Unknown Hives Verified 12/18/24 15:28 promethazine Allergy Unknown Unknown Verified 12/18/24 15:28 allergy reaction PFSH <ALAN Mike - Last Filed: 12/18/24 17:00> [facility] Disclaimer: The information contained in this section may have been updated after the patient was seen, as this information can be updated by other users. Medical History Depression Back pain SOB (shortness of breath) Hypertension Diabetes Surgical History History of tubal ligation History of appendectomy History of cholecystectomy Family History Grandmother Cancer Diabetes Father Heart attack Social History Smoking Status: Never smoker second hand exposure: Yes alcohol intake: current alcohol intake frequency: holidays/special occasions only substance use type: denies use current occupational status: unemployed Travel in the last 8 weeks?: None Have you lived/traveled outside [place] in past 30 days?: No Contact w/someone who lives/traveled outside US past 30 days?: No Exposure to someone with infectious disease in past 14 days?: No Do you have a fever (greater than 100.4 F or 38 C)?: No Have you tested positive for COVID-19?: No Exposed to someone with COVID-19 in past 14 days?: No Do you have a sore throat?: No Do you have a cough?: No Do you have any weakness?: No Do you have any diarrhea?: No Are you experiencing any unusual bleeding?: No Do you have any muscle aches/pain?: No Do you have any abdominal pain?: No Are you experiencing loss of taste or smell?: No <ALAN Mike - Last Filed: 12/18/24 17:00> ROS Obtained: Yes All systems reviewed & no additional complaints except as documented Physical Exam <ALAN Mike - Last Filed: 12/18/24 17:00> General General appearance: alert and in no apparent distress Head Head exam: atraumatic and normocephalic Eye Eye exam: Present PERRL and EOMI ENT ENT exam: Present mucous membranes moist Neck Neck exam: Present normal inspection Chest Chest inspection: Present normal inspection and symmetric chest wall rise Respiratory Respiratory exam: Present normal lung sounds bilaterally; Absent respiratory distress Cardiovascular Cardiovascular exam: Present regular rate and normal rhythm Abdominal Exam Abdominal exam: Present soft; Absent tenderness Extremities Exam Extremities exam: Present normal inspection, tenderness, joint swelling and other (There is mild tenderness to palpation to the lateral medial malleolus, as well as pretibial region, as well as dorsal aspect of the patient's foot, patient is otherwise neurovascular intact); Absent full ROM Neurological Exam Neurological exam: Present alert and oriented X3 Psychiatric Psychiatric exam: Present normal affect Skin Skin exam: Present warm and dry Medical Decision Making <ALAN Mike - Last Filed: 12/18/24 17:00> Medical Records Medical records reviewed: Yes I reviewed the patient's medical records. Screening: Per USPSTF and CDC recommendations, given the prevalence of disease in our region, it is our hospital?s policy to screen for HIV and viral Hepatitis for all patients aged 18 and over and those with ongoing risk factors. Niraj Inquiry Pt receiving controlled substance: No Niraj was queried for this patient: No Vital Signs: 12/18/24 15:09 12/18/24 17:10 Temperature 98.3 F 98.1 F Temperature Source Oral Oral Pulse Rate 85 Pulse Rate [Right Brachial] 84 Respiratory Rate 16 16 Blood Pressure 140/85 Blood Pressure [Right Arm] 155/96 H Blood Pressure Mean [Right Arm] 115 Blood Pressure Source Automatic Cuff Blood Pressure Source [Right Arm] Automatic Cuff Blood Pressure Position Sitting Blood Pressure Position [Right Arm] Sitting 02 Sat by Pulse Oximetry 100 Oxygen Delivery Method Room Air Room Air Orders (Tests/Meds): ED MEDICATIONS Discontinued Medications Generic Name Dose Route Start Last Admin Trade Name Freq PRN Reason Stop Dose Admin Ketorolac Tromethamine 15 mg 12/18/24 15:23 12/18/24 16:15 Ketorolac 30mg/Ml Vial IM 12/18/24 15:24 15 mg ONCE ONE Administration Ondansetron HCl 4 mg 12/18/24 16:17 12/18/24 16:19 Ondansetron 4mg Odt SL 12/18/24 16:18 4 mg ONCE ONE Administration Oxycodone/Acetaminophen 1 each 12/18/24 17:00 12/18/24 17:05 Oxycodone 5mg W/Apap 325mg Tablet PO 12/18/24 17:01 1 each ONCE ONE Administration ORDERS Category Date Time Status XR ankle LT min 3V Stat Exams 12/18/24 15:21 Completed XR foot LT min 3V Stat Exams 12/18/24 15:21 Completed XR tibia fibula LT 2V Stat Exams 12/18/24 15:21 Completed Medical Decision Narrative: 44-year-old female presents emergency department with a left ankle/foot/leg injury/pain for the last 2 days, differential diagnosis include but not limited to, ankle sprain, leg sprain, foot sprain, foot fracture, ankle fracture, tib-fib fracture among others. Obtain x-ray of the left ankle, left foot and left tib-fib for further evaluation/characterization, give 15 mg IM Toradol for pain. Notified by nursing staff, the patient complaining of some nausea, will give 4 mg p.o. ODT Zofran for nausea. I reviewed the patient's left ankle x-ray along the corresponding radiological reports, there is moderate soft tissue swelling without any acute bony abnormality. I reviewed the patient's left foot x-ray along with the corresponding radiologic report, no acute bony abnormality. I reviewed the patient's tib-fib x-ray along the corresponding radiological report, no acute bony abnormality. I discussed the results with the patient at bedside, recommend rest ice compression elevation, will place patient in a small walking boot for comfort, patient most likely has an ankle sprain/foot sprain, recommend follow-up with orthopedic doctor/primary care doctor in the upcoming days/weeks, patient still having quite significant pain, patient does have degree of what appears to be chronic pain type syndrome, is slated to follow with pain management, will give her at home dose of p.o. Percocet 5 mg here today, patient voiced understanding and agreed with current treatment plan/discharge plan. Strict ED return precautions given. <Weston Vance MD - Last Filed: 12/18/24 21:01> Vital Signs: 12/18/24 15:09 12/18/24 17:10 Temperature 98.3 F 98.1 F Temperature Source Oral Oral Pulse Rate 85 Pulse Rate [Right Brachial] 84 Respiratory Rate 16 16 Blood Pressure 140/85 Blood Pressure [Right Arm] 155/96 H Blood Pressure Mean [Right Arm] 115 Blood Pressure Source Automatic Cuff Blood Pressure Source [Right Arm] Automatic Cuff Blood Pressure Position Sitting Blood Pressure Position [Right Arm] Sitting 02 Sat by Pulse Oximetry 100 Oxygen Delivery Method Room Air Room Air Orders (Tests/Meds): ED MEDICATIONS Discontinued Medications Generic Name Dose Route Start Last Admin Trade Name Radha PRN Reason Stop Dose Admin Ketorolac Tromethamine 15 mg 12/18/24 15:23 12/18/24 16:15 Ketorolac 30mg/Ml Vial IM 12/18/24 15:24 15 mg ONCE ONE Administration Ondansetron HCl 4 mg 12/18/24 16:17 12/18/24 16:19 Ondansetron 4mg Odt SL 12/18/24 16:18 4 mg ONCE ONE Administration Oxycodone/Acetaminophen 1 each 12/18/24 17:00 12/18/24 17:05 Oxycodone 5mg W/Apap 325mg Tablet PO 12/18/24 17:01 1 each ONCE ONE Administration ORDERS Category Date Time Status XR ankle LT min 3V Stat Exams 12/18/24 15:21 Completed XR foot LT min 3V Stat Exams 12/18/24 15:21 Completed XR tibia fibula LT 2V Stat Exams 12/18/24 15:21 Completed Medical Decision Narrative: 44-year-old female presents emergency department with a left ankle/foot/leg injury/pain for the last 2 days, differential diagnosis include but not limited to, ankle sprain, leg sprain, foot sprain, foot fracture, ankle fracture, tib-fib fracture among others. Obtain x-ray of the left ankle, left foot and left tib-fib for further evaluation/characterization, give 15 mg IM Toradol for pain. Notified by nursing staff, the patient complaining of some nausea, will give 4 mg p.o. ODT Zofran for nausea. I reviewed the patient's left ankle x-ray along the corresponding radiological reports, there is moderate soft tissue swelling without any acute bony abnormality. I reviewed the patient's left foot x-ray along with the corresponding radiologic report, no acute bony abnormality. I reviewed the patient's tib-fib x-ray along the corresponding radiological report, no acute bony abnormality. I discussed the results with the patient at bedside, recommend rest ice compression elevation, will place patient in a small walking boot for comfort, patient most likely has an ankle sprain/foot sprain, recommend follow-up with orthopedic doctor/primary care doctor in the upcoming days/weeks, patient still having quite significant pain, patient does have degree of what appears to be chronic pain type syndrome, is slated to follow with pain management, will give her at home dose of p.o. Percocet 5 mg here today, patient voiced understanding and agreed with current treatment plan/discharge plan. Strict ED return precautions given. I was consulted by the TANIA, and we discussed the complexity of the problems being addressed. I approve the treatment and management plan for this patient's care in the emergency department, thus performing a substantive portion of the medical decision making. Weston Vance MD Critical Care <ALAN Mike - Last Filed: 12/18/24 17:00> Critical Care Time Critical Care Time: No
--- NOTE | 2024-12-18 15:21 | XR_ITS ---
FINAL REPORT CLINICAL HISTORY: Left leg injury, fall COMPARISON: None FINDINGS: LEFT TIBIA FIBULA: 4 views of the tibia and fibula were obtained. There is no acute fracture or dislocation. The joint spaces are intact. There is no soft tissue abnormality. IMPRESSION: No acute bony abnormality. Reviewed, Interpreted and Dictated by Bertram Pham MD Transcribed by Sarah Higgins Authenticated and [facility]
--- NOTE | 2024-12-18 15:21 | XR_ITS ---
FINAL REPORT CLINICAL HISTORY: Left ankle pain/swelling COMPARISON: None FINDINGS: LEFT ANKLE Three views demonstrate no acute fracture or dislocation. The visualized joint spaces are normally aligned. Moderate soft tissue swelling is present. IMPRESSION: Moderate soft tissue swelling without acute bony abnormality. Reviewed, Interpreted and Dictated by Bertram Pham MD Transcribed by Sarah Higgins Authenticated and [facility]
--- NOTE | 2024-12-18 15:21 | XR_ITS ---
FINAL REPORT CLINICAL HISTORY: Left foot pain after injury COMPARISON: None FINDINGS: LEFT FOOT Three views of the left foot demonstrate no acute fracture or dislocation. The visualized joint spaces are normally aligned. The soft tissues are unremarkable. IMPRESSION: No acute bony abnormality. Reviewed, Interpreted and Dictated by Bertram Pham MD Transcribed by Sarah Higgins Authenticated and [facility]
[2024-12-18] MEDS: KETOROLAC 30MG/ML VIAL 15 MG IM (16:15)
[2024-12-18] MEDS: ONDANSETRON 4MG ODT 4 MG SL (16:19)
[2024-12-18] MEDS: OXYCODONE 5MG W/APAP 325MG TABLET 1 EACH PO (17:05)
[2024-12-18 17:10] VITALS: BP 140/85; PULSE 85; RESP 16; TEMP 36.7; O2SAT 99
== END 2024-12-18 17:11 | disposition home or self-care (01) ==
PROVIDERS: Emergency Provider Student in an Organized Health Care Education/Training Program; PCP Family Medicine
DX: S93.402A Sprain of unspecified ligament of left ankle, initial encounter (principal); R11.0 Nausea; W19.XXXA Unspecified fall, initial encounter
CPT/HCPCS: 73590; 73610; 73630; 96372; 99284; J1885; Q0162